=== PATIENT | male | born 1960 | race Caucasian/White ===

== ENCOUNTER 2016-11-06 01:11 | Inpatient (IN) | payer MEDICARE, OTHER ==
[~2016-11-06] VITALS: Ht 190.5 cm; Wt 100.2 kg
[~2016-11-06 01:11] MED LIST: AMLO-218 PO; ASPI-664 PO; ATOR20TA38 PO; BEN50 PO; CARV25TA79 PO; FURO-109 PO; HYDROMORPHONE MC; ISOS40TA15 PO; NITR0.4T6 SL; POTA20TA96 PO; RANO10002 PO; TICA90TA PO; [UNRECOGNIZED DRUG - CODE] TD
[2016-11-06] MEDS ORDERED: morphine 4 MG/ML VIAL IV STA (01:49)
[2016-11-06] MEDS ORDERED: ONDANSETRON 4 MG INJ IV STA (01:49)
[2016-11-06] MEDS ORDERED: ASPIRIN 325 MG TAB PO STA (01:49)
[2016-11-06] MEDS ORDERED: NITROGLYCERIN 2% 1 GM OINT PKT TD STA (01:49)
--- NOTE | 2016-11-06 01:55 | ERA ---
ER Documentation Chief Complaint Date/Time DATE: 11/06/16 TIME: 01:51 Chief Complaint chest pressure pain,SOB,just took nitro sublingual,hx MIX3 & CABG 2016 HPI This a 55-year-old male with a history of CAD and underwent triple bypass in April 2016. The patient states that he takes nitroglycerin as needed for chest pressure in his chest pressure pattern is very random. He says he usually takes 1 or 2 and it goes away but tonight the chest pressure did not go away. The patient said he was on a train coming to [place] when he developed substernal chest pressure about 1 hour ago. He said he took 3 nitroglycerin without relief. He said the pain went to his left arm he was a little sweaty and short of breath. He says the pain went from an 8 out of 10 to a 4 out of 10 in the pain is still there now. 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 ROS All systems reviewed and are negative except as per history of present illness. Medications Home Meds Active Scripts Nitroglycerin* (Nitroglycerin* SL) 0.4 Mg Tab.subl, 0.4 MG SL Q5MIN Y for CHEST PAIN for 30 Days, BOTTLE Prov:ANNA PIERRE 01/22/16 Nitroglycerin* (Nitro-Dur* Patch) 0.6 mg/hr Patch, 1 PATCH TD DAILY Y for CHEST PAIN, #30 PATCH Prov:ANNA PIERRE 01/22/16 Amlodipine Besylate* (Norvasc*) 10 Mg Tab, 10 MG PO DAILY, #30 TAB Prov:ANNA PIERRE 01/21/16 Aspirin* (Aspirin* EC) 81 Mg Tabec, 81 MG PO DAILY, #30 Prov:ANNA PIERRE 01/21/16 Reported Medications Ticagrelor* (Brilinta*) 90 Mg Tablet, 90 MG PO Q12, TAB 01/19/16 Diphenhydramine Hcl* (Benadryl*) 50 Mg Cap, 50 MG PO TID for ITCHING, CAP 09/11/14 Ranolazine* (Ranexa*) 1,000 Mg Tab.sr.12h, 1000 MG PO Q12, TAB 09/11/14 Potassium Chloride* (Potassium Chloride*) 20 Meq Tablet.er, 20 MEQ PO DAILY, TAB.SA 09/11/14 Nitroglycerin* (Nitroglycerin* SL) 0.4 Mg Tab.subl, 0.4 MG SL Q5MIN Y for CHEST PAIN, BOTTLE 09/11/14 Isosorbide Dinitrate* (Isordil*) 40 Mg Tablet, 40 MG PO TID, TAB 09/11/14 Hydromorphone* PUMP (Dilaudid* PUMP) 1 Each Pump.resvr, 1 EACH MC . DIRECTED Y for PAIN, EA 09/11/14 Furosemide* (Lasix*) 40 Mg Tablet, 40 MG PO BID, TAB 09/11/14 Carvedilol* (Carvedilol*) 25 Mg Tablet, 25 MG PO BID, TAB 09/11/14 Atorvastatin Calcium* (Atorvastatin Calcium*) 20 Mg Tablet, 20 MG PO HS, TAB 09/11/14 Allergies Allergies: Coded Allergies: atropine (Unverified Allergy, Unknown, 01/19/16) metoclopramide (Unverified Allergy, Unknown, 01/19/16) prochlorperazine (Unverified Allergy, Unknown, 01/19/16) PMhx/Soc History of Surgery: Yes (CABG, PMR,ABLATION,CHOLECYSTECTOMY) Anesthesia Reaction: No Hx Neurological Disorder: No Hx Respiratory Disorders: Yes (PNA) Hx Cardiac Disorders: Yes (LA, CAD,WPW,SVT,VT,EPICARDIAL PADS 2008) Hx Psychiatric Problems: No Hx Miscellaneous Medical Probl: No Hx Alcohol Use: No Hx Substance Use: No Hx Tobacco Use: No FmHx Family History: coronary disease Physical Exam Vitals Vital Signs Date Time Temp Pulse Resp B/P Pulse Ox O2 Delivery O2 Flow Rate FiO2 11/06/16 02:19 Nasal Cannula 11/06/16 02:19 80 16 107/70 100 Room Air 11/06/16 01:18 97.6 83 18 97/50 96 Physical Exam Const: Well-developed, well-nourished Head: Atraumatic, normocephalic Eyes: Normal Conjunctiva, PERRLA, EOMI, normal sclera, no nystagmus ENT: Normal External Ears, Nose and Mouth, moist mucus membranes. Neck: Full range of motion. No meningismus, no lymphadenopathy. Resp: Clear to auscultation bilaterally, no wheezing, rhonchi, rales Cardio: Regular rate and rhythm, no murmurs, S1 S2 present Abd: Soft, non tender x 4, non distended. Normal bowel sounds, no guarding or rebound, no pulsitile abdominal masses or bruits Skin: No petechiae or rashes, no ecchymosis , no maculopapular rash Back: No midline or flank tenderness Ext: No cyanosis, or edema, FROM x 4, normal inspection, neurovascularly intact x 4 Neur: Awake and alert, STR 5/5 x 4, sensation intact x 4, no focal findings, cerebellum intact Psych: Normal Mood and Affect Result Diagram: 11/06/16 0300 11/06/16 0300 Results 24 hrs Laboratory Tests Test 11/06/16 03:00 Activated Partial Thromboplast Time 32.6Sec Anion Gap 21 Blood Morphology Comment Blood Urea Nitrogen 24mg/dl Calcium Level 9.2mg/dl Carbon Dioxide Level 27mmol/L Chloride Level 95mmol/L Clumped Platelets OCCASIONAL Creatinine 2.28mg/dl Glucose Level 97mg/dl Hematocrit 32.1% Hemoglobin 10.4g/dl INR International Normalized Ratio 1.26 Lymphocytes # 0.510^3/ul Lymphocytes % 7.0% Mean Corpuscular Hemoglobin 26.4pg Mean Corpuscular Hemoglobin Concent 32.4g/dl Mean Corpuscular Volume 81.5fl Mean Platelet Volume 8.1fl Monocytes # 0.510^3/ul Monocytes % 7.0% Neutrophils # 6.010^3/ul Neutrophils % 86.0% Nucleated Red Blood Cells # 10^3/ul Platelet Count 88663^3/UL Platelet Estimate PLT APPEAR ADEQUATE Potassium Level 5.1mmol/L Prothrombin Time 15.9Sec Prothrombin Time Ratio 1.2 Red Blood Count 3.9310^6/ul Red Cell Distribution Width 21.9% Sodium Level 138mmol/L Troponin I 0.025ng/ml White Blood Count 7.010^3/ul Current Medications Medications (Trade) Dose Ordered Sig/Nora Route PRN Reason Start Time Stop Time Status Last Admin Dose Admin Aspirin (Aspirin) 325 mg ONCE STAT PO 11/06/16 01:49 11/06/16 01:50 DC 11/06/16 02:04 Nitroglycerin (Nitroglycerin 2% Oint) 1 inch ONCE STAT TD 11/06/16 01:49 11/06/16 01:50 DC Nitroglycerin (Nitroglycerin (Sl Tab) 0.4 Mg) 1 tab Q5M UP TO 3 DOSES PRN SL CHEST PAIN 11/06/16 02:00 Morphine Sulfate (morphine) 4 mg ONCE STAT IV 11/06/16 01:49 11/06/16 01:50 DC 11/06/16 04:01 Ondansetron HCl (Zofran Inj) 4 mg ONCE STAT IV 11/06/16 01:49 11/06/16 01:50 DC 11/06/16 04:01 Procedures/MDM EKG: Rate/Rhythm: Electronic ventricular pacemaker QRS, ST, QT: wide, QRS, QT] Impression: NORMAL EKG PROCEDURE: XR Chest. CLINICAL INDICATION: Chest pain. TECHNIQUE: Single frontal view of the chest was obtained COMPARISON: 01/19/2016. FINDINGS: Right lower chest wall medically electric cardiac device. This is new over interval since 01/19/2016, and the previously identified device has been exchanged. Cardiomegaly. Left lung base discoid atelectasis. Right lung is clear There is no pleural effusion or pneumothorax. IMPRESSION: Left lung base discoid atelectasis. RPTAT: [facility]U Physician Pasquale Date Time Electronically viewed and signed by Physician Pasquale on 11/06/2016 02:17 RS/ CC: BRI BURNETT DO Patient's symptoms are concerning for cardiac cause will require inpatient workup and continuous monitoring. Further w/u for ischemia, arrhythmia, PE or dissection will be deferred to the inpatient team. Accepting Care Team: Current data and ongoing care discussed. Time: Time of admission Primary Provider: sharon Consulting: [OUMAR] Outstanding Data: none Departure Diagnosis: Primary Impression: Chest pain Qualified Code: R07.9 - Chest pain, unspecified type Condition: Stable BRI BURNETT DO Nov 06, 2016 01:55
--- NOTE | 2016-11-06 02:17 | RADRPT ---
PROCEDURE: XR Chest. CLINICAL INDICATION: Chest pain. TECHNIQUE: Single frontal view of the chest was obtained COMPARISON: 01/19/2016. FINDINGS: Right lower chest wall medically electric cardiac device. This is new over interval since 01/19/2016 , and the previously identified device has been exchanged. Cardiomegaly. Left lung base discoid atelectasis. Right lung is clear There is no pleural effusion or pneumothorax. IMPRESSION: Left lung base discoid atelectasis. RPTAT: [facility]U Physician Pasquale Date Time Electronically viewed and signed by Kasi Rothman Physician on 11/06/2016 02:17 RS/
[2016-11-06 03:18] LABS: HEMATOCRIT 32.1 % (42.0-52.0); HEMOGLOBIN 10.4 g/dl (14.0-18.0); MEAN CORPUSCULAR HEMOGLOBIN 26.4 pg (29.0-33.0); MEAN CORPUSCULAR HGB CONC 32.4 g/dl (32.0-37.0); MEAN CORPUSCULAR VOLUME 81.5 fl (82.0-101.0); MEAN PLATELET VOLUME 8.1 fl (7.4-10.4); PLATELET COUNT 149 10^3/UL (140-440); RED BLOOD COUNT 3.93 10^6/ul (4.70-6.10); RED CELL DISTRIBUTION WIDTH 21.9 % (11.5-14.5)
[2016-11-06 03:19] LABS: CONDITION 1; LH ANALYZER COMMENTS 1; SUSPECT 1
[2016-11-06 03:26] LABS: INR 1.26; PARTIAL THROMBOPLASTIN TIME 32.6 Sec (25.0-35.0); PROTIME 15.9 Sec (12.2-14.2); PT RATIO 1.2
[2016-11-06 03:49] LABS: LYMPHOCYTES # 0.5 10^3/ul (0.8-2.9); MONOCYTE # 0.5 10^3/ul (0.3-0.9)
[2016-11-06 03:50] LABS: PLATELET ESTIMATE PLT APPEAR ADEQUATE; PLATELETS CLUMPS OCCASIONAL
[2016-11-06 03:52] LABS: POTASSIUM 5.1 mmol/L (3.5-5.1)
[2016-11-06 03:55] LABS: CREATININE 2.28 mg/dl (0.61-1.24)
[2016-11-06 03:56] LABS: CALCIUM 9.2 mg/dl (8.4-10.2)
[2016-11-06 04:08] LABS: TROPONIN-I 0.025 ng/ml (0.00-0.12)
[2016-11-06] MEDS ORDERED: SOD CHLORIDE 0.9% 1,000 ML IV SCH (04:38)
[2016-11-06] MEDS ORDERED: ACETAMINOPHEN 325 MG TAB PO PRN ×2 (05:00→07:00)
[2016-11-06] MEDS ORDERED: ONDANSETRON 4 MG INJ IV PRN ×2 (05:00→07:00)
[2016-11-06] MEDS: NITROGLYCERIN (SL) 0.4 MG TAB SL PRN ×2 (05:06→05:15)
[2016-11-06] MEDS ORDERED: NITROGLYCERIN (SL) 0.4 MG TAB SL PRN (07:00)
[2016-11-06] MEDS ORDERED: ALBUTEROL/IPRATROPIUM (NEB) 3 ML AMP HHN PRN (07:00)
[2016-11-06] MEDS ORDERED: FUROSEMIDE 40 MG TAB PO SCH (07:00)
[2016-11-06] MEDS ORDERED: NACL 0.9% 3 ML SYG IV SCH (07:00)
[2016-11-06] MEDS: TICAGRELOR 90 MG TABLET PO SCH ×2 (08:05→20:34)
[2016-11-06] MEDS: ASPIRIN (EC) 81 MG TAB PO SCH (08:05)
--- NOTE | 2016-11-06 08:14 | HP ---
DATE OF ADMISSION: 11/06/2016 TIME SEEN: 6 a.m. CHIEF COMPLAINT: Chest pain. 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 He said the pain started while he was sitting on a train, and it is located in the mid chest with ra diation to his left shoulder and arm. The pain started an hour or 2 prior to arrival to the ER. He denied any shortness of breath, nausea, vomiting, or diaphoresis. He took 3 sublingual nitroglycer in without relief of his pain. When he presented to the ER, blood pressure was 97/50, heart rate 83, respiratory rate 18, temperatu re 97.6, oxygen saturation 96% on room air. Laboratory value shows a hemoglobin of 10.4 with an MCV of 81, 22, chloride 95, BUN 24, creatinine 2.28. His first troponin is negative. EKG shows ventricular paced, no ST elevation or depression. He received aspirin nitro, morphine, and Zofran w hile he was in the ER. Chest x-ray shows left lung base, discoid atelectasis. The right lung is cl ear and there is no pleural effusion. REVIEW OF SYSTEMS: A 12-point review of systems was performed and is negative except as mentioned i n the HPI. PAST MEDICAL HISTORY: As per HPI. PAST SURGICAL HISTORY: As per HPI. ALLERGIES: 1. ATROPINE 2. REGLAN. 2. PROCHLORPERAZINE. HOME MEDICATIONS: 1. Benadryl. 2. Brilinta. 3. Norvasc. 4. Lipitor. 5. Coreg. 6. Isordil. 7. Ranexa 8. Aspirin. 9. Lasix. 10. Potassium PHYSICAL EXAMINATION: VITAL SIGNS: Blood pressure 99/66, heart rate 80, respiratory rate 16, temperature 97.6, oxygen sat uration 100% on room air. GENERAL: No acute distress, answering questions appropriately, able to speak in full sentences. HEENT: Normocephalic, atraumatic. Extraocular muscles intact. Pupils are reactive to light. CARDIOVASCULAR: Regular rate and rhythm with no extra sounds. LUNGS: Clear. No wheezes or rhonchi. ABDOMEN: Soft, nontender, nondistended. Positive bowel sounds. EXTREMITIES: No edema. NEUROLOGIC: No focal deficits. LABORATORY: Pertinent positive results are as mentioned in the HPI. IMAGING: Chest x-ray with results as mentioned in the HPI. IMPRESSION: 1. Chest pain, need to rule out acute coronary syndrome. 2. History of coronary artery disease with history of coronary artery bypass graft with coronary ar nadir bypass graft. 3. History of tachybrady syndrome, status post ablation and pacemaker placement 4. History of Dslrj-Mrlinaxhw-Vjjly syndrome 5. History of OR in December of last year. 6. History of supraventricular tachycardia and ventricular tachycardia. PLAN: Admit to telemetry unit. We will send additional troponins. Will obtain a 2-D echo and card iology consult. He will be continued with his home medications which include a beta genet and Mariaa linta, aspirin, statin, nitro, and diuretic. He will also be placed on oxygen and will provide as n eeded morphine and sublingual nitro. Further workup and management will be per clinical course. For DVT prophylaxis, subcutaneous heparin. Dictated By: LINNEA BENTLEY/KETURAH Conf#: [id number] DID#: [id number]
[2016-11-06] MEDS: ISOSORBIDE DINITRATE 20 MG TAB PO SCH ×3 (09:00→20:41)
[2016-11-06] MEDS: POTASSIUM CHLORIDE (SR) 20 MEQ TAB PO SCH (09:00)
[2016-11-06] MEDS: HEPARIN 5,000 UNIT/0.5 ML VIAL SC SCH ×2 (09:00→20:36)
[2016-11-06] MEDS: AMLODIPINE 10 MG TAB PO SCH (09:00)
[2016-11-06] MEDS: DIPHENHYDRAMINE 50 MG CAP PO SCH ×3 (09:00→20:34)
[2016-11-06] MEDS: RANOLAZINE (SR) 500 MG TAB PO SCH ×2 (09:00→20:34)
--- NOTE | 2016-11-06 09:24 | CONS ---
Date/Time of Note Date/Time of Note DATE: 11/06/16 TIME: 08:57 Assessment/Plan Assessment/Plan Chief Complaint/Hosp Course Chest pain/SOB: His symptoms are certainly concerning for bypass graft failure considering he was doing well until 1 month ago. He does not have e/o heart failure on my exam (maybe even dry) and so I doubt that is what is causing his symptoms. It is not uncommon for graft failure even this early after surgery. I think a cardiac cath would be reasonable but due to his renal function (?acute vs chronic), the patient prefers to hold off until we have more evidence. His first trop was negative. If the second is positive, will rediscuss and likely proceed with cath today. If negative, he prefers a stress test to evaluate. However he does not want the stress test today and wants to see how he feels tomorrow. He understands that stress testing is not done over the weekend and he would have to wait until Wednesday otherwise. He is agreeable. CAD s/p CABG: as above ICM: EF 40% per pt. No signs of CHF by exam. Acute renal failure vs CKD: Unknown baseline renal function WPW s/p ablation -continue ASA, ticagrelor, lipitor -coreg 25mg BID (with holding parameters) -imdur -decrease to lasix 20mg BID as may be dry on exam which may explain renal function -trend trops -refer to above discussion for next steps of management Problems: Consultation Date/Type/Reason Admit Date/Time Date of Consultation: Nov 06, 2016 Type of Consultation: Cardiology Reason for Consultation Chest pain Referring Provider: LYDIA BENNETT Hx of Present Illness 55 yo M with a h/o CAD s/p CABG (3V, 04/2016 in [place]), ICM (per pt ~40%), h/o WPW s /p ablation, ICD (epicardial), CKD (unknown baseline), who presents with chest pain. The patient notes that he was doing well since his surgery until the past 3-4 weeks where he has noticed mostly increasing GUTIERREZ. He denies edema, orthopnea , PND. He does note that he gets random episodes of chest pain with and without exertion relieved with 1 NTG. He lives in [place] but was visiting his uncle here in [place] and had chest pain in the train but the [facility] did not help so he decided to come in. The symptoms are similar to what he had prior to CABG. He also notes that he had multiple stents that were "closed off" which is the reason he had the CABG. Currently asymptomatic. per HPI Past Medical History see HPI Past Surgical History Past Surgical Hx: angioplasty, other Exam/Review of Systems Vital Signs Vitals Vital Signs Date Time Temp Pulse Resp B/P Pulse Ox O2 Delivery O2 Flow Rate FiO2 11/06/16 07:15 80 18 108/72 99 Nasal Cannula 2.0 11/06/16 01:18 97.6 Exam Constitutional: alert, oriented Psych: no complaints Head: atraumatic, normocephalic Eyes: nl conjunctiva Neck: No jvd Respiratory: clear to auscultation, No crackles/rales Cardiovascular: edema (1+), regular rate and rhythm, No systolic murmur Gastrointestinal: non-tender, soft Musculoskeletal: nl extremities to inspection Extremities: normal pulses Neurological: nl mental status, nl speech Skin: No rash or lesions Results EKG: sinus, paced Result Diagram: 11/06/16 0300 11/06/16 0300 Results 24 hrs Laboratory Tests Test 11/06/16 03:00 Activated Partial Thromboplast Time 32.6 Anion Gap 21 H Blood Morphology Comment Blood Urea Nitrogen 24 H Calcium Level 9.2 Carbon Dioxide Level 27 Chloride Level 95 L Clumped Platelets OCCASIONAL Creatinine 2.28 H Glucose Level 97 Hematocrit 32.1 #L Hemoglobin 10.4 #L INR International Normalized Ratio 1.26 Lymphocytes # 0.5 L Lymphocytes % 7.0 L Mean Corpuscular Hemoglobin 26.4 L Mean Corpuscular Hemoglobin Concent 32.4 Mean Corpuscular Volume 81.5 L Mean Platelet Volume 8.1 Monocytes # 0.5 Monocytes % 7.0 Neutrophils # 6.0 Neutrophils % 86.0 H Nucleated Red Blood Cells # Platelet Count 149 # Platelet Estimate PLT APPEAR ADEQUATE Potassium Level 5.1 Prothrombin Time 15.9 H Prothrombin Time Ratio 1.2 Red Blood Count 3.93 L Red Cell Distribution Width 21.9 #H Sodium Level 138 Troponin I 0.025 White Blood Count 7.0 Medications Medications Current Medications Sodium Chloride (NS) 1,000 ml @ 80 mls/hr [id number] IV Last administered on 11/06t 06:05; Admin Dose 80 MLS/HR; Start 11/06/16 at 04:38; Stop 11/06/16 at 17: 07 Ondansetron HCl (Zofran Inj) 4 mg Q6H PRN IV NAUSEA AND/OR VOMITING; Start at 07:00 Nitroglycerin (Nitroglycerin (Sl Tab) 0.4 Mg) 1 tab Q5M PRN SL CHEST PAIN; Start 11/06/16 at 07:00 Acetaminophen (Tylenol Tab) 650 mg Q6H PRN PO PAIN LEVEL 1-3 OR FEVER; Start at 07:00 Morphine Sulfate (morphine) 2 mg Q4H PRN IV PAIN LEVEL 7-10; Start 11/06/16 at 07:00 Heparin Sodium (Porcine) (Heparin (5000 Units/0.5 ml)) 5,000 unit Q12 SC ; Start 11/06/16 at 09:00 Amlodipine Besylate (Norvasc) 10 mg DAILY PO ; Start 11/06/16 at 09:00 Aspirin (Halfprin) 81 mg DAILY PO Last administered on 11/06/16 08:05; Admin Dose 81 MG; Start 11/06/16 at 09:00 Atorvastatin Calcium (Lipitor) 20 mg HS PO ; Start 11/06/16 at 21:00 Carvedilol (Coreg) 25 mg BID PO ; Start 11/06/16 at 09:00 Diphenhydramine HCl (Benadryl) 50 mg TID PO ; Start 11/06/16 at 09:00 Potassium Chloride (Klor-Con 20) 20 meq DAILY PO ; Start 11/06/16 at 09:00 Ranolazine (Ranexa) 1,000 mg Q12 PO ; Start 11/06/16 at 09:00 Ticagrelor (Brilinta) 90 mg Q12 PO Last administered on 11/06/16 08:05; Admin Dose 90 MG; Start 11/06/16 at 09:00 Isosorbide Dinitrate (Isordil) 40 mg TID PO ; Start 11/06/16 at 09:00 GAUTAM MUNIZ Nov 06, 2016 09:24
--- NOTE | 2016-11-06 13:12 | RADRPT ---
Echocardiogram Report Patient Name: FELIPE ROMANO Gender: Male Date: 1960 Study Date: 06-Nov-2016 Funding Specialist: Yulissa Hendrickson RDCS Location: Ref. Physician: LINNEA HARRIS Quality: Technically Difficult Study Procedures: Transthoracic echocardiogram with complete 2D, M-Mode, and doppler examination. Indications: Chest Pain. 2D/M Mode Doppler Measurement Value Normal Ranges Measurement Value Normal Ranges LVIDd 2D 5.5 3.5 - 5.6 cm AV Peak Bebo 1.7 m/sec LVIDs 2D 4.6 2.1 - 4.1 cm AV Peak PG 12.1 mmHg LVPWd 2D 1.1 0.6 - 1.1 cm AI Peak PG 56.1 mmHg IVSd 2D 1.2 0.6 - 1.1 cm AI Peak Bebo 3.7 m/sec AoR Diam 2D 2.9 2.0 - 3.7 cm AI PHT 510.4 msec EDV 2D 147.5 cm3 LVOT Peak Bebo 1.0 m/sec ESV 2D 94.6 cm3 LVOT Peak PG 3.7 mmHg LA Dimen 2D 4.3 2.3 - 4.0 cm MV E Peak Bebo 0.6 m/sec MV A Peak Bebo 0.6 m/sec MV E/A 0.9 MV Decel Time 139 msec MV Decel [place] 4 MV E/A 0.9 TR Peak Bebo 1.2 m/sec TR Peak PG 5.5 mmHg RVSP 21.0 mmHg Findings Left Ventricle: Normal left ventricular systolic function. Normal left ventricular cavity size. Mild concentric left ventricular hypertrophy. Ejection fraction is visually estimated at 55 %. Tissue Doppler/Mitral Doppler indices are consistent with impaired relaxation (Stage I diastolic dysfunction). Right Ventricle: Mild enlargement of right ventricle. Moderate right ventricular hypokinesis. Left Atrium: There is moderate enlargement of left atrium. Right Atrium: There is moderate enlargement of right atrium. Mitral Valve: Mild mitral annular calcification. There is trace to mild mitral valve regurgitation. Aortic Valve: Aortic cusps appear mildly calcified. Moderate to severe aortic valve regurgitation. Tricuspid Valve: Estimated peak PA systolic pressure mmHg. There is severe tricuspid regurgitation. Pericardium: Normal pericardium with no significant pericardial effusion. Aorta: Normal aortic root. IVC: Dilated IVC with respiratory collapse consistent with elevated right atrial pressure. Conclusions Normal left ventricular systolic function. Normal left ventricular cavity size. Mild concentric left ventricular hypertrophy. Ejection fraction is visually estimated at 55 %. Tissue Doppler/Mitral Doppler indices are consistent with impaired relaxation (Stage I diastolic dysfunction). Abnormal septal motion due to cardiac surgery. Mild enlargement of right ventricle. Moderate right ventricular hypokinesis. Moderate to severe aortic valve regurgitation. Severe tricuspid regurgitation. PAP could not be estimated due to severe TR. RA pressure is 8 mmHg. Electronically Signed By: Lul Gutierres 06-Nov-2016 13:11:18 -0800 Patient Name: FELIPE ROMANO Study Date: 06-Nov-2016 [id number]
[2016-11-06 13:56] LABS: TROPONIN-I 0.02 ng/ml (0.00-0.12)
[2016-11-06 14:12] LABS: CK-MB 3.32 ng/ml (0.0-2.4)
[2016-11-06] MEDS: morphine 2 MG INJ IV PRN ×2 (15:26→19:43)
[2016-11-06] MEDS: FUROSEMIDE 20 MG TAB PO SCH (19:16)
[2016-11-06] MEDS: ATORVASTATIN 20 MG TAB PO SCH (20:35)
[2016-11-06 20:45] VITALS: TEMP 98
[2016-11-06 21:00] VITALS: BP 119/69; PULSE 78; RESP 16
[2016-11-06 21:34] VITALS: Ht 190.5 cm; Wt 100.2 kg
[2016-11-06 21:53] VITALS: PULSE 82
[2016-11-06] MEDS ORDERED: HYDROCODONE/APAP (10/325) TAB PO PRN (22:00)
[2016-11-06] MEDS: morphine 4 MG/ML VIAL IV PRN (22:29)
[2016-11-06 23:10] LABS: TROPONIN-I 0.023 ng/ml (0.00-0.12)
[2016-11-06 23:23] LABS: CK-MB 3.25 ng/ml (0.0-2.4)
[2016-11-07] VITALS (12 sets, daily range): BP systolic 91–148; BP diastolic 53–69; PULSE 79–96; RESP 15–20
[2016-11-07] MEDS: FUROSEMIDE 20 MG TAB PO SCH ×2 (05:12→18:55)
[2016-11-07] MEDS: morphine 4 MG/ML VIAL IV PRN ×2 (05:12→10:06)
[2016-11-07] MEDS: AMLODIPINE 10 MG TAB PO SCH (09:00)
[2016-11-07] MEDS: ISOSORBIDE DINITRATE 20 MG TAB PO SCH ×3 (09:00→22:22)
[2016-11-07] MEDS: DIPHENHYDRAMINE 50 MG CAP PO SCH ×3 (09:00→22:21)
[2016-11-07] MEDS: RANOLAZINE (SR) 500 MG TAB PO SCH ×2 (09:56→22:21)
[2016-11-07] MEDS: ASPIRIN (EC) 81 MG TAB PO SCH (09:56)
[2016-11-07] MEDS: TICAGRELOR 90 MG TABLET PO SCH ×2 (09:59→22:46)
[2016-11-07] MEDS: POTASSIUM CHLORIDE (SR) 20 MEQ TAB PO SCH (10:02)
[2016-11-07] MEDS: HEPARIN 5,000 UNIT/0.5 ML VIAL SC SCH ×2 (10:03→22:45)
--- NOTE | 2016-11-07 14:50 | PN ---
Date/Time of Note Date/Time of Note DATE: 11/07/16 TIME: 14:43 Assessment/Plan VTE Prophylaxis VTE Prophylaxis Intervention: SCD's Lines/Catheters IV [facility] [place] Assessment/Plan Chief Complaint/Hosp Course Assessment and plan 1. Chest pain. Troponin negative so far. Echocardiogram with ejection fraction of 55% with stage I diastolic dysfunction. Continue optimization with cardiovascular medications. [employer] following. Tentative for stress test versus cardiac cath. We'll follow-up 2. History of CAD with CABG. Continue on statin and antiplatelet 3. History of tachybradycardia syndrome. Patient is status post ablation and pacemaker placement. Continue inpatient monitoring 4. History of Xccoa-Altkjhyrh-Rntzh syndrome. Continue with cardiology recommendations 5. History of myocardial infarction when year ago. Continue on beta genet and Disposition and plan: Follow-up with cardiology. Tentative plan for possible stress test. We'll follow-up with recommendations. Discharge him medically stable and cleared by consultants Discussed plan of care with Dr. Malloy Problems: Subjective 24 Hr Interval Summary Free Text/Dictation No signs or symptoms of distress. Denies chest pain Exam/Review of Systems Vital Signs Vitals Vital Signs Date Time Temp Pulse Resp B/P Pulse Ox O2 Delivery O2 Flow Rate FiO2 11/07/16 12:26 80 11/07/16 11:55 98.2 18 102/58 92 11/07/16 04:00 Room Air 11/06/16 16:58 2.0 Intake and Output 11/06/16 11/06/16 11/07/16 14:59 22:59 06:59 Intake Total 1000 ml 800 ml Output Total 550 ml 400 ml Balance 450 ml 400 ml Exam General: No acute signs or symptoms of distress Eyes: pupils equal round, Anicteric scler Neck: Supple nontender, no JVD Cardiac: S1, S2 auscultated, regular rhythm and rate Pulmonary: No coarse rhonchi or breathing auscultated GI: Abdomen soft nontender nondistended, bowel sounds active Extremities: No edema bilateral lower extremities Skin: Clean dry and intact Neurologic: Alert to person place and time and situation Results Result Diagram: 11/06/16 0300 11/06/16 0300 Results 24 hrs Laboratory Tests Test 11/06/16 22:25 Creatine Kinase 137 Creatine Kinase Index 2.4 Creatinine Kinase MB (Mass) 3.25 H Troponin I 0.023 Medications Medications Current Medications Ondansetron HCl (Zofran Inj) 4 mg Q6H PRN IV NAUSEA AND/OR VOMITING; Start at 07:00 Nitroglycerin (Nitroglycerin (Sl Tab) 0.4 Mg) 1 tab Q5M PRN SL CHEST PAIN; Start 11/06/16 at 07:00 Acetaminophen (Tylenol Tab) 650 mg Q6H PRN PO PAIN LEVEL 1-3 OR FEVER; Start at 07:00 Heparin Sodium (Porcine) (Heparin (5000 Units/0.5 ml)) 5,000 unit Q12 SC Last administered on 11/07/16 10:03; Admin Dose 5,000 UNIT; Start 11/06/16 at 09:00 Amlodipine Besylate (Norvasc) 10 mg DAILY PO ; Start 11/06/16 at 09:00 Aspirin (Halfprin) 81 mg DAILY PO Last administered on 11/07/16 09:56; Admin Dose 81 MG; Start 11/06/16 at 09:00 Atorvastatin Calcium (Lipitor) 20 mg HS PO Last administered on 11/06/16 20:35 ; Admin Dose 20 MG; Start 11/06/16 at 21:00 Carvedilol (Coreg) 25 mg BID PO ; Start 11/06/16 at 09:00 Diphenhydramine HCl (Benadryl) 50 mg TID PO Last administered on 11/06/16 20: 34; Admin Dose 50 MG; Start 11/06/16 at 09:00 Potassium Chloride (Klor-Con 20) 20 meq DAILY PO Last administered on 10:02; Admin Dose 20 MEQ; Start 11/06/16 at 09:00 Ranolazine (Ranexa) 1,000 mg Q12 PO Last administered on 11/07/16 09:56; Admin Dose 1,000 MG; Start 11/06/16 at 09:00 Ticagrelor (Brilinta) 90 mg Q12 PO Last administered on 11/07/16 09:59; Admin Dose 90 MG; Start 11/06/16 at 09:00 Isosorbide Dinitrate (Isordil) 40 mg TID PO ; Start 11/06/16 at 09:00 Morphine Sulfate (morphine) 4 mg Q4H PRN IV severe pain Last administered on t 10:06; Admin Dose 4 MG; Start 11/06/16 at 22:00 Acetaminophen/ Hydrocodone Bitart ([place] ()) 1 tab Q6H PRN PO moderate pain; Start 11/06/16 at 22:00 LYDIA BENNETT Nov 07, 2016 14:49
[2016-11-07] MEDS ORDERED: morphine 4 MG/ML VIAL IM PRN ×2 (18:41→22:00)
[2016-11-07] MEDS: morphine 4 MG/ML VIAL IM PRN ×2 (18:56→23:18)
--- NOTE | 2016-11-07 20:08 | CONS ---
Date/Time of Note Date/Time of Note DATE: 11/07/16 TIME: 20:01 Assessment/Plan Assessment/Plan Chief Complaint/Hosp Course Chest pain and dyspnea on exertion: ruled out for myocardial infarction Moderate to severe aortic regurgitation Severe tricuspid regurgitation CAD s/p CABG History of ischemic cardiomyopathy: prior LVEF 40% per patient, now with LVEF 55 % on echocardiogram Acute renal failure vs chronic kidney disease: unknown baseline renal function WPW s/p ablation -echocardiogram showed LVEF 55%, mild LVH, mild diastolic dysfunction, moderate to severe AR, severe TR -continue aspirin, ticagrelor, Lipitor -continue Coreg, Isordil, Ranexa -increase Lasix back to 40mg BID, monitor renal function -will defer coronary angiography given negative troponins and risk for contrast nephropathy with pre-existing renal failure -plan for Lexiscan SPECT next week Problems: Consultation Date/Type/Reason Admit Date/Time Nov 06, 2016 at 04:39 Initial Consult Date 11/06/16 Type of Consultation: Cardiology 24 HR Interval Summary Free Text/Dictation No further chest pain. No shortness of breath at rest, but still with dyspnea on exertion. Detailed Summary Additional Comments 14 point review of systems without changes. Exam/Review of Systems Vital Signs Vitals Vital Signs Date Time Temp Pulse Resp B/P Pulse Ox O2 Delivery O2 Flow Rate FiO2 11/07/16 17:05 79 11/07/16 16:00 98.4 18 98/55 91 11/07/16 04:00 Room Air 11/06/16 16:58 2.0 Intake and Output 11/06/16 11/06/16 11/07/16 15:00 23:00 07:00 Intake Total 1000 ml 800 ml Output Total 550 ml 400 ml Balance 450 ml 400 ml Exam Constitutional: alert, oriented Psych: no complaints Head: atraumatic, normocephalic Eyes: nl conjunctiva Neck: No jvd Respiratory: clear to auscultation, No crackles/rales Cardiovascular: edema (1+), regular rate and rhythm, No systolic murmur Gastrointestinal: non-tender, soft Musculoskeletal: nl extremities to inspection Extremities: normal pulses Neurological: nl mental status, nl speech Skin: No rash or lesions Results Result Diagram: 11/06/16 0300 11/06/16 0300 Results 24 hrs Laboratory Tests Test 11/06/16 22:25 Creatine Kinase 137 Creatine Kinase Index 2.4 Creatinine Kinase MB (Mass) 3.25 H Troponin I 0.023 Medications Medications Current Medications Ondansetron HCl (Zofran Inj) 4 mg Q6H PRN IV NAUSEA AND/OR VOMITING; Start at 07:00 Nitroglycerin (Nitroglycerin (Sl Tab) 0.4 Mg) 1 tab Q5M PRN SL CHEST PAIN; Start 11/06/16 at 07:00 Acetaminophen (Tylenol Tab) 650 mg Q6H PRN PO PAIN LEVEL 1-3 OR FEVER; Start at 07:00 Heparin Sodium (Porcine) (Heparin (5000 Units/0.5 ml)) 5,000 unit Q12 SC Last administered on 11/07/16 10:03; Admin Dose 5,000 UNIT; Start 11/06/16 at 09:00 Amlodipine Besylate (Norvasc) 10 mg DAILY PO ; Start 11/06/16 at 09:00 Aspirin (Halfprin) 81 mg DAILY PO Last administered on 11/07/16 09:56; Admin Dose 81 MG; Start 11/06/16 at 09:00 Atorvastatin Calcium (Lipitor) 20 mg HS PO Last administered on 11/06/16 20:35 ; Admin Dose 20 MG; Start 11/06/16 at 21:00 Carvedilol (Coreg) 25 mg BID PO ; Start 11/06/16 at 09:00 Diphenhydramine HCl (Benadryl) 50 mg TID PO Last administered on 11/06/16 20: 34; Admin Dose 50 MG; Start 11/06/16 at 09:00 Potassium Chloride (Klor-Con 20) 20 meq DAILY PO Last administered on 10:02; Admin Dose 20 MEQ; Start 11/06/16 at 09:00 Ranolazine (Ranexa) 1,000 mg Q12 PO Last administered on 11/07/16 09:56; Admin Dose 1,000 MG; Start 11/06/16 at 09:00 Ticagrelor (Brilinta) 90 mg Q12 PO Last administered on 11/07/16 09:59; Admin Dose 90 MG; Start 11/06/16 at 09:00 Isosorbide Dinitrate (Isordil) 40 mg TID PO ; Start 11/06/16 at 09:00 Acetaminophen/ Hydrocodone Bitart ([place] (10)) 1 tab Q6H PRN PO moderate pain; Start 11/06/16 at 22:00 Morphine Sulfate (morphine) 4 mg Q4H PRN IM severe pain Last administered on t 18:56; Admin Dose 4 MG; Start 11/07/16 at 18:40 KENDRA MCKAY MD Nov 07, 2016 20:08
[2016-11-07] MEDS: ATORVASTATIN 20 MG TAB PO SCH (22:23)
[2016-11-08] VITALS (14 sets, daily range): BP systolic 100–125; BP diastolic 57–76; PULSE 79–86; RESP 18–20
[2016-11-08] MEDS: morphine 4 MG/ML VIAL IM PRN ×4 (04:32→20:49)
[2016-11-08] MEDS: FUROSEMIDE 20 MG TAB PO SCH ×2 (06:13→17:36)
--- NOTE | 2016-11-08 09:05 | QN ---
Documentation Comment renal consult chart reviewed full consult to follow CORINA GRIFFITH MD Nov 08, 2016 09:05
[2016-11-08] MEDS: DIPHENHYDRAMINE 50 MG CAP PO SCH ×3 (09:35→20:45)
[2016-11-08] MEDS: ASPIRIN (EC) 81 MG TAB PO SCH (09:36)
[2016-11-08] MEDS: ISOSORBIDE DINITRATE 20 MG TAB PO SCH ×3 (09:37→20:47)
[2016-11-08] MEDS: POTASSIUM CHLORIDE (SR) 20 MEQ TAB PO SCH (09:37)
[2016-11-08] MEDS: AMLODIPINE 10 MG TAB PO SCH (09:38)
[2016-11-08] MEDS: RANOLAZINE (SR) 500 MG TAB PO SCH ×2 (09:38→20:45)
[2016-11-08] MEDS: HEPARIN 5,000 UNIT/0.5 ML VIAL SC SCH ×2 (09:40→21:06)
[2016-11-08] MEDS: TICAGRELOR 90 MG TABLET PO SCH ×2 (09:40→20:47)
[2016-11-08 10:03] LABS: HEMATOCRIT 31.3 % (42.0-52.0); HEMOGLOBIN 10.3 g/dl (14.0-18.0); MEAN CORPUSCULAR HEMOGLOBIN 26.6 pg (29.0-33.0); MEAN CORPUSCULAR HGB CONC 32.9 g/dl (32.0-37.0); MEAN CORPUSCULAR VOLUME 80.7 fl (82.0-101.0); MEAN PLATELET VOLUME 7.2 fl (7.4-10.4); PLATELET COUNT 159 10^3/UL (140-440); RED BLOOD COUNT 3.87 10^6/ul (4.70-6.10); RED CELL DISTRIBUTION WIDTH 22.5 % (11.5-14.5); UNCORRECTED WBC 3.2 10^3/ul (4.8-10.8); WHITE BLOOD COUNT 3.2 10^3/ul (4.8-10.8)
[2016-11-08 10:07] LABS: CONDITION 1; LH ANALYZER COMMENTS 1; SUSPECT 1
[2016-11-08 10:09] LABS: POTASSIUM 3.9 mmol/L (3.5-5.1)
[2016-11-08 10:10] LABS: ADD UMIC NO; URINE BILIRUBIN (Dip) NEGATIVE (NEGATIVE); URINE BLOOD (Dip) NEGATIVE (NEGATIVE); URINE COLOR YELLOW (YELLOW); URINE GLUCOSE (Dip) NEGATIVE (NEGATIVE); URINE KETONES (Dip) NEGATIVE (NEGATIVE); URINE LEUKOCYTE ESTERASE (Dip) NEGATIVE (NEGATIVE); URINE NITRITE (Dip) NEGATIVE (NEGATIVE); URINE TOTAL PROTEIN (Dip) NEGATIVE (NEGATIVE); URINE UROBILINOGEN (Dip) 2.0 E.U./dL (0.1-1.0)
[2016-11-08 10:11] LABS: CREATININE 0.96 mg/dl (0.61-1.24)
[2016-11-08 10:12] LABS: CALCIUM 8.5 mg/dl (8.4-10.2)
--- NOTE | 2016-11-08 11:16 | RADRPT ---
PROCEDURE: US Renal CLINICAL INDICATION: A K I TECHNIQUE: Multiple sonographic images of the kidneys and bladder were obtained. Evaluation of th e kidneys and bladder was performed as well with sumner scale and color and Doppler evaluation using a curved array transducer. The images were reviewed on a high-resolution PACS workstation. COMPARISON: No prior studies are available for comparison. FINDINGS: The right kidney measures 12.2 cm in length. The left kidney measures 12.4 cm in length. There are n o focal areas of abnormal echogenicity. There is mild dilatation of the inferior pole gisela of the l eft kidney. No intra renal mass or discrete calcification is identified. The bladder is unremarkable appearance. IMPRESSION: 1. Mild dilatation of the inferior pole gisela within the left kidney. 2. Otherwise, unremarkable renal sonogram. Physician Park Date Time Electronically viewed and signed by Physician Park on 11/08/2016 11:16 /
[2016-11-08 12:18] LABS: LYMPHOCYTES # 0.7 10^3/ul (0.8-2.9); MONOCYTE # 0.3 10^3/ul (0.3-0.9); NEUTROPHIL # 2.2 10^3/ul (1.6-7.5)
--- NOTE | 2016-11-08 13:54 | PN ---
Date/Time of Note Date/Time of Note DATE: 11/08/16 TIME: 13:51 Assessment/Plan VTE Prophylaxis VTE Prophylaxis Intervention: SCD's Lines/Catheters [facility] NOT WORKING Assessment/Plan Chief Complaint/Hosp Course Assessment and plan 1. Chest pain. Troponin negative so far. Echocardiogram with ejection fraction of 55% with stage I diastolic dysfunction. Continue optimization with cardiovascular medications. Electrical And Instrument Engineer following. Tentative for stress test versus cardiac cath. We'll follow-up 2. History of CAD with CABG. Continue on statin and antiplatelet 3. History of tachybradycardia syndrome. Patient is status post ablation and pacemaker placement. Continue inpatient monitoring 4. History of Riuah-Himolbpit-Flfmd syndrome. Continue with cardiology recommendations 5. History of myocardial infarction when year ago. Continue on beta genet and 6. WEN. improved at present. cont with nephrology recs Disposition and plan: Follow-up with cardiology. Tentative plan for possible stress test. continue inpatient monitoring ADDENDUM: Patient lives in [place] and currently has no housing in [place]. He also reports that his friend is the one who will drive from [place] to pick him up and bring him back home. Discussed with radio despatcher. Plan for stress test this admission Discussed plan of care with Dr. Malloy Problems: Subjective 24 Hr Interval Summary Free Text/Dictation denies any chest pain. Comfortable at present Exam/Review of Systems Vital Signs Vitals Vital Signs Date Time Temp Pulse Resp B/P Pulse Ox O2 Delivery O2 Flow Rate FiO2 11/08/16 12:22 80 11/08/16 12:19 98.4 18 107/57 100 11/07/16 04:00 Room Air 11/06/16 16:58 2.0 Intake and Output 11/07/16 11/07/16 11/08/16 15:00 23:00 07:00 Intake Total 420 ml 600 ml Output Total 800 ml 800 ml Balance -380 ml -200 ml Exam General: No acute signs or symptoms of distress Eyes: pupils equal round, Anicteric scler Neck: Supple nontender, no JVD Cardiac: S1, S2 auscultated, regular rhythm and rate Pulmonary: No coarse rhonchi or breathing auscultated GI: Abdomen soft nontender nondistended, bowel sounds active Extremities: No edema bilateral lower extremities Skin: Clean dry and intact Neurologic: Alert to person place and time and situation Results Result Diagram: 11/08/1695011/08/16 09 Results 24 hrs Laboratory Tests Test 11/08/16 04:30 11/08/16 09:51 Urine Bilirubin NEGATIVE Urine Clarity CLEAR Urine Color YELLOW Urine Glucose NEGATIVE Urine Hemoglobin NEGATIVE Urine Ketones NEGATIVE Urine Leukocyte Esterase NEGATIVE Urine Nitrite NEGATIVE Urine Protein/Creatinine Ratio Urine Random Creatinine Urine Random Sodium 45 Urine Specific [place] 1.010 Urine Total Protein Urine Urobilinogen 2.0 E.U./dL H Urine pH 6.0 Anion Gap 14 Band Neutrophils % 1.0 Basophils # Basophils % Blood Morphology Comment Blood Urea Nitrogen 19 Calcium Level 8.5 Carbon Dioxide Level 32 H Chloride Level 97 Creatinine 0.96 Differential Comment MANUAL DIFF Eosinophils # 0.0 Eosinophils % 1.0 Glucose Level 95 Hematocrit 31.3 L Hemoglobin 10.3 L Lymphocytes # 0.7 L Lymphocytes % 21.0 Mean Corpuscular Hemoglobin 26.6 L Mean Corpuscular Hemoglobin Concent 32.9 Mean Corpuscular Volume 80.7 L Mean Platelet Volume 7.2 L Monocytes # 0.3 Monocytes % 8.0 Neutrophils # 2.2 Neutrophils % 69.0 Nucleated Red Blood Cells # Nucleated Red Blood Cells % Phosphorus Level 2.2 L Platelet Count 159 Potassium Level 3.9 Red Blood Count 3.87 L Red Cell Distribution Width 22.5 H Sodium Level 139 White Blood Count 3.2 #L Medications Medications Current Medications Ondansetron HCl (Zofran Inj) 4 mg Q6H PRN IV NAUSEA AND/OR VOMITING; Start at 07:00 Nitroglycerin (Nitroglycerin (Sl Tab) 0.4 Mg) 1 tab Q5M PRN SL CHEST PAIN; Start 11/06/16 at 07:00 Acetaminophen (Tylenol Tab) 650 mg Q6H PRN PO PAIN LEVEL 1-3 OR FEVER; Start at 07:00 Heparin Sodium (Porcine) (Heparin (5000 Units/0.5 ml)) 5,000 unit Q12 SC Last administered on 11/08/16 09:40; Admin Dose 5,000 UNIT; Start 11/06/16 at 09:00 Amlodipine Besylate (Norvasc) 10 mg DAILY PO Last administered on 11/08/16 09: 38; Admin Dose 10 MG; Start 11/06/16 at 09:00 Aspirin (Halfprin) 81 mg DAILY PO Last administered on 11/08/16 09:36; Admin Dose 81 MG; Start 11/06/16 at 09:00 Atorvastatin Calcium (Lipitor) 20 mg HS PO Last administered on 11/07/16 22:23 ; Admin Dose 20 MG; Start 11/06/16 at 21:00 Carvedilol (Coreg) 25 mg BID PO Last administered on 11/08/16 09:36; Admin Dose 25 MG; Start 11/06/16 at 09:00 Diphenhydramine HCl (Benadryl) 50 mg TID PO Last administered on 11/08/16 09: 35; Admin Dose 50 MG; Start 11/06/16 at 09:00 Potassium Chloride (Klor-Con 20) 20 meq DAILY PO Last administered on 09:37; Admin Dose 20 MEQ; Start 11/06/16 at 09:00 Ranolazine (Ranexa) 1,000 mg Q12 PO Last administered on 11/08/16 09:38; Admin Dose 1,000 MG; Start 11/06/16 at 09:00 Ticagrelor (Brilinta) 90 mg Q12 PO Last administered on 11/08/16 09:40; Admin Dose 90 MG; Start 11/06/16 at 09:00 Isosorbide Dinitrate (Isordil) 40 mg TID PO Last administered on 11/08/16 09: 37; Admin Dose 40 MG; Start 11/06/16 at 09:00 Acetaminophen/ Hydrocodone Bitart ([place] (10/325)) 1 tab Q6H PRN PO moderate pain; Start 11/06/16 at 22:00 Morphine Sulfate (morphine) 4 mg Q4H PRN IM severe pain Last administered on 09:49; Admin Dose 4 MG; Start 11/07/16 at 18:40 LYDIA BENNETT Nov 08, 2016 13:54
[2016-11-08] MEDS ORDERED: TICA90TA PO (15:28)
[2016-11-08] MEDS ORDERED: ATOR20TA38 PO (15:28)
[2016-11-08] MEDS ORDERED: AMLO-218 PO (15:28)
[2016-11-08] MEDS ORDERED: LAS20 PO (15:28)
[2016-11-08] MEDS ORDERED: RANO10002 PO (15:28)
[2016-11-08] MEDS ORDERED: CARV25TA79 PO (15:28)
[2016-11-08] MEDS ORDERED: ISOS40TA15 PO (15:28)
--- NOTE | 2016-11-08 15:32 | PDOCDIS ---
LYDIA BENNETT 11/08/16 1531: Discharge Instructions DIAGNOSIS Discharge Diagnosis: 1. Chest pain 2. CAD 3.WEN 4. Nbjgd-Dpqyajxht-Izpfi syndrome CONDITION Patient Condition: Stable HOME CARE INSTRUCTIONS: Special Diet: CARDIAC DIET ACTIVITY: Activity Restrictions: Slowly Increase Activity FOLLOW UP/APPOINTMENTS Appointments 1. Follow up with Dr. Abdirahman Gonzalez within one week for stress test MALLY NORWOOD MD 11/11/16 1143: Discharge Instructions CONDITION Patient Condition: Good HOME CARE INSTRUCTIONS: Special Diet: Cadiac low fat, low sodium diet ACTIVITY: Activity Restrictions: Rest between Activity Avoid heavy lifting Avoid Heavy Housework FOLLOW UP/APPOINTMENTS Appointments Follow up with cardiology and Nephrology as outpatient in 2 week after discharge LYDIA BENNETT Nov 08, 2016 15:31 MALLY NORWOOD MD Nov 11, 2016 11:43
--- NOTE | 2016-11-08 15:58 | CONS ---
Date/Time of Note Date/Time of Note DATE: 11/08/16 TIME: 15:57 Consultation Date/Type/Reason Admit Date/Time Nov 06, 2016 at 04:39 Initial Consult Date 11/06/16 Type of Consultation: renal Reason for Consultation [id number] renal consult Exam/Review of Systems Vital Signs Vitals Vital Signs Date Time Temp Pulse Resp B/P Pulse Ox O2 Delivery O2 Flow Rate FiO2 11/08/16 15:52 98.4 82 18 118/76 96 11/07/16 04:00 Room Air 11/06/16 16:58 2.0 Intake and Output 11/07/16 11/07/16 11/08/16 15:00 23:00 07:00 Intake Total 420 ml 600 ml Output Total 800 ml 800 ml Balance -380 ml -200 ml Results Result Diagram: 11/08/1651 11/08/16 0951 Results 24 hrs Laboratory Tests Test 11/08/16 04:30 11/08/16 09:51 Urine Bilirubin NEGATIVE Urine Clarity CLEAR Urine Color YELLOW Urine Glucose NEGATIVE Urine Hemoglobin NEGATIVE Urine Ketones NEGATIVE Urine Leukocyte Esterase NEGATIVE Urine Nitrite NEGATIVE Urine Protein/Creatinine Ratio Urine Random Creatinine Urine Random Sodium 45 Urine Specific [place] 1.010 Urine Total Protein Urine Urobilinogen 2.0 E.U./dL H Urine pH 6.0 Anion Gap 14 Band Neutrophils % 1.0 Basophils # Basophils % Blood Morphology Comment Blood Urea Nitrogen 19 Calcium Level 8.5 Carbon Dioxide Level 32 H Chloride Level 97 Creatinine 0.96 Differential Comment MANUAL DIFF Eosinophils # 0.0 Eosinophils % 1.0 Glucose Level 95 Hematocrit 31.3 L Hemoglobin 10.3 L Lymphocytes # 0.7 L Lymphocytes % 21.0 Mean Corpuscular Hemoglobin 26.6 L Mean Corpuscular Hemoglobin Concent 32.9 Mean Corpuscular Volume 80.7 L Mean Platelet Volume 7.2 L Monocytes # 0.3 Monocytes % 8.0 Neutrophils # 2.2 Neutrophils % 69.0 Nucleated Red Blood Cells # Nucleated Red Blood Cells % Phosphorus Level 2.2 L Platelet Count 159 Potassium Level 3.9 Red Blood Count 3.87 L Red Cell Distribution Width 22.5 H Sodium Level 139 White Blood Count 3.2 #L Medications Medications Current Medications Ondansetron HCl (Zofran Inj) 4 mg Q6H PRN IV NAUSEA AND/OR VOMITING; Start at 07:00 Nitroglycerin (Nitroglycerin (Sl Tab) 0.4 Mg) 1 tab Q5M PRN SL CHEST PAIN; Start 11/06/16 at 07:00 Acetaminophen (Tylenol Tab) 650 mg Q6H PRN PO PAIN LEVEL 1-3 OR FEVER; Start at 07:00 Heparin Sodium (Porcine) (Heparin (5000 Units/0.5 ml)) 5,000 unit Q12 SC Last administered on 11/08/16 09:40; Admin Dose 5,000 UNIT; Start 11/06/16 at 09:00 Amlodipine Besylate (Norvasc) 10 mg DAILY PO Last administered on 11/08/16 09: 38; Admin Dose 10 MG; Start 11/06/16 at 09:00 Aspirin (Halfprin) 81 mg DAILY PO Last administered on 11/08/16 09:36; Admin Dose 81 MG; Start 11/06/16 at 09:00 Atorvastatin Calcium (Lipitor) 20 mg HS PO Last administered on 11/07/16 22:23 ; Admin Dose 20 MG; Start 11/06/16 at 21:00 Carvedilol (Coreg) 25 mg BID PO Last administered on 11/08/16 09:36; Admin Dose 25 MG; Start 11/06/16 at 09:00 Diphenhydramine HCl (Benadryl) 50 mg TID PO Last administered on 11/08/16 14: 39; Admin Dose 50 MG; Start 11/06/16 at 09:00 Potassium Chloride (Klor-Con 20) 20 meq DAILY PO Last administered on 09:37; Admin Dose 20 MEQ; Start 11/06/16 at 09:00 Ranolazine (Ranexa) 1,000 mg Q12 PO Last administered on 11/08/16 09:38; Admin Dose 1,000 MG; Start 11/06/16 at 09:00 Ticagrelor (Brilinta) 90 mg Q12 PO Last administered on 11/08/16 09:40; Admin Dose 90 MG; Start 11/06/16 at 09:00 Isosorbide Dinitrate (Isordil) 40 mg TID PO Last administered on 11/08/16 14: 42; Admin Dose 40 MG; Start 11/06/16 at 09:00 Acetaminophen/ Hydrocodone Bitart ([place] (10/325)) 1 tab Q6H PRN PO moderate pain; Start 11/06/16 at 22:00 Morphine Sulfate (morphine) 4 mg Q4H PRN IM severe pain Last administered on t 15:05; Admin Dose 4 MG; Start 11/07/16 at 18:40 CORINA GRIFFITH MD Nov 08, 2016 15:58
--- NOTE | 2016-11-08 17:21 | CONS ---
DATE OF ADMISSION: 11/06/2016 DATE OF CONSULTATION: Thank you, Dr. Harris and Alfonso Meade, for kindly asking me to see this patient in consultation. HISTORY OF PRESENT ILLNESS: Mr. Tae Roper is a 55-year-old male who has a history of CKD, history of coronary artery bypass graft. Presented with shortness of breath and is being admitted for further management. The patient noted to have elevation of BUN and creatinine so nephrology consultation requested. The patient's hematocrit 31.3, platelet count of 159. The patient has a sodium 138, potassium 5.1, BUN 24, creatinine 2.28. In view of patient's abnormal electrolytes, nephrology consultation requested. PAST MEDICAL HISTORY: Positive for CAD, CABG, history of tachybrady syndrome, history of pacemaker placement, history of WPW syndrome, history of NM, history of SVT. ALLERGIES: 1. ATROPINE. 2. REGLAN. 3. PROCHLORPERAZINE. SOCIAL HISTORY: Negative. FAMILY HISTORY: Noncontributory. MEDICATION HISTORY: The patient is on: 1. [place]. 2. DuoNeb. 3. Norvasc. 4. Aspirin. 5. Lipitor. 6. Coreg. 7. Benadryl. 8. Lasix. 9. Isordil. 10. Morphine. 11. Nitroglycerin. 12. Zofran. 13. Potassium. 14. Ranexa. 15. Brilinta. REVIEW OF SYSTEMS: HEENT: Unremarkable. CARDIORESPIRATORY: Unremarkable for any chest pain, palpitations, or short of breath. ABDOMEN: Unremarkable. EXTREMITIES: Unremarkable. CENTRAL NERVOUS SYSTEM: Unremarkable. PHYSICAL EXAMINATION: GENERAL: The patient is awake, alert, not in any acute respiratory distress. VITAL SIGNS: Pulse 82, blood pressure 118/76. HEENT: Atraumatic, normocephalic. Pupils are equal, reactive to light. No pale conjunctivae or icterus. NECK: Supple. LUNGS: Clear anteriorly with few rhonchi. CHEST: CABG scar noted. ABDOMEN: Soft, nontender. Bowel sounds present. No palpable mass or hepatosplenomegaly. No guarding, rebound tenderness. EXTREMITIES: No cyanosis, clubbing, or edema. CENTRAL NERVOUS SYSTEM: The patient is awake, alert, moving both upper and lower extremities. LABORATORY DATA: WBC 3.2, hematocrit 31.3, platelet count of 159. Sodium 130, potassium 5.1, BUN of 24, creatinine 2.28. Chest x-ray shows left lung base discoid atelectasis. The patient has ultrasound shows unremarkable sonogram. IMPRESSION: 1. Acute kidney injury, mild renal insufficiency. 2. Anemia. 3. Coronary artery disease, history of coronary artery bypass graft. 4. Khaow-Odjyidnlk-Gvhbu syndrome. 5. History of pacemaker placement. 6. Rule out underlying pulmonary edema. PLAN: To continue to follow electrolytes, obtain urine electrolytes. The patient's diuretic will be adjusted as needed. The patient's renal parameters are going to be monitored. The patient will have urine studies done as well as orders _. Thank you, Dr. Harris, for kindly asking me to see this patient in nephrology consultation. Dictated By: CORINA GRIFFITH MD BS/NTS Conf#: [id number] DID#: [id number] CC: ALFONSO MEADE NP; LINNEA HARRIS MD;*EndCC* MTDD
[2016-11-08] MEDS: ATORVASTATIN 20 MG TAB PO SCH (20:45)
[2016-11-09] VITALS (10 sets, daily range): BP systolic 105–117; BP diastolic 56–66; PULSE 79–85; RESP 16–20
[2016-11-09] MEDS: morphine 4 MG/ML VIAL IM PRN ×4 (01:29→15:06)
[2016-11-09] MEDS: FUROSEMIDE 20 MG TAB PO SCH ×2 (05:34→18:42)
[2016-11-09] MEDS: SOD CHLORIDE 0.9% 1,000 ML IV SCH ×2 (07:00→13:20)
[2016-11-09] MEDS: DIPHENHYDRAMINE 50 MG CAP PO SCH ×3 (09:00→21:10)
[2016-11-09] MEDS: HEPARIN 5,000 UNIT/0.5 ML VIAL SC SCH ×2 (09:00→21:10)
[2016-11-09] MEDS: ISOSORBIDE DINITRATE 20 MG TAB PO SCH ×3 (09:00→21:12)
[2016-11-09 12:07] LABS: BASOPHILS % 0.1 % (0.0-2.0); EOSINOPHILS % 0.3 % (0.0-7.0); HEMATOCRIT 34.3 % (42.0-52.0); HEMOGLOBIN 11.1 g/dl (14.0-18.0); LYMPHOCYTES # 0.7 10^3/ul (0.8-2.9); LYMPHOCYTES % 19.7 % (15.0-51.0); MEAN CORPUSCULAR HEMOGLOBIN 26.2 pg (29.0-33.0); MEAN CORPUSCULAR HGB CONC 32.5 g/dl (32.0-37.0); MEAN CORPUSCULAR VOLUME 80.6 fl (82.0-101.0); MEAN PLATELET VOLUME 7.7 fl (7.4-10.4); MONOCYTE # 0.5 10^3/ul (0.3-0.9); MONOCYTES % 14.2 % (0.0-11.0); NEUTROPHIL # 2.3 10^3/ul (1.6-7.5); NEUTROPHILS % 65.7 % (39.0-77.0); PLATELET COUNT 173 10^3/UL (140-440); RED BLOOD COUNT 4.25 10^6/ul (4.70-6.10); RED CELL DISTRIBUTION WIDTH 23.7 % (11.5-14.5); UNCORRECTED WBC 3.6 10^3/ul (4.8-10.8); WHITE BLOOD COUNT 3.6 10^3/ul (4.8-10.8)
[2016-11-09 12:09] LABS: CONDITION 1; LH ANALYZER COMMENTS 1; POTASSIUM 4.5 mmol/L (3.5-5.1)
[2016-11-09 12:12] LABS: CREATININE 0.9 mg/dl (0.61-1.24)
[2016-11-09 12:13] LABS: CALCIUM 9.2 mg/dl (8.4-10.2)
[2016-11-09] MEDS ORDERED: REGADENOSON 0.4 MG/5 ML SYG IV ONE (13:00)
--- NOTE | 2016-11-09 13:25 | PN ---
Date/Time of Note Date/Time of Note DATE: 11/09/16 TIME: 13:23 Assessment/Plan VTE Prophylaxis VTE Prophylaxis Intervention: SCD's Lines/Catheters IV Catheter Type (from Nrs): NOT WORKING Assessment/Plan Chief Complaint/Hosp Course Assessment and plan 1. Chest pain. Troponin negative so far. Echocardiogram with ejection fraction of 55% with stage I diastolic dysfunction. Continue optimization with cardiovascular medications. Furnace Charger following. Tentative for stress test versus cardiac cath. We'll follow-up 2. History of CAD with CABG. Continue on statin and antiplatelet 3. History of tachybradycardia syndrome. Patient is status post ablation and pacemaker placement. Continue inpatient monitoring 4. History of Ahsgn-Yszrxefxa-Zodkk syndrome. Continue with cardiology recommendations 5. History of myocardial infarction when year ago. Continue on beta genet and 6. WEN. improved at present. cont with nephrology recs Disposition and plan: Awaiting stress test. Will follow up Discussed plan of care with Dr. Arellano Problems: Subjective 24 Hr Interval Summary Free Text/Dictation no s/s of distress. comfortable at present Exam/Review of Systems Vital Signs Vitals Vital Signs Date Time Temp Pulse Resp B/P Pulse Ox O2 Delivery O2 Flow Rate FiO2 11/09/16 12:21 80 11/09/16 12:00 98.1 18 114/64 94 Room Air 11/06/16 16:58 2.0 Intake and Output 11/08/16 11/08/16 11/09/16 14:59 22:59 06:59 Intake Total 1600 ml 1240 ml Output Total 2400 ml 2025 ml Balance -800 ml -785 ml Exam General: No acute signs or symptoms of distress Eyes: pupils equal round, Anicteric scler Neck: Supple nontender, no JVD Cardiac: S1, S2 auscultated, regular rhythm and rate Pulmonary: No coarse rhonchi or breathing auscultated GI: Abdomen soft nontender nondistended, bowel sounds active Extremities: No edema bilateral lower extremities Skin: Clean dry and intact Neurologic: Alert to person place and time and situation Results Result Diagram: 11/09/16 1107 11/09/16 1107 Results 24 hrs Laboratory Tests Test 11/09/16 11:07 Anion Gap 15 Basophils # 0.0 Basophils % 0.1 Blood Morphology Comment Blood Urea Nitrogen 18 Calcium Level 9.2 Carbon Dioxide Level 31 Chloride Level 99 Creatinine 0.90 Eosinophils # 0.0 Eosinophils % 0.3 Glucose Level 82 Hematocrit 34.3 L Hemoglobin 11.1 L Lymphocytes # 0.7 L Lymphocytes % 19.7 Mean Corpuscular Hemoglobin 26.2 L Mean Corpuscular Hemoglobin Concent 32.5 Mean Corpuscular Volume 80.6 L Mean Platelet Volume 7.7 Monocytes # 0.5 Monocytes % 14.2 H Neutrophils # 2.3 Neutrophils % 65.7 Nucleated Red Blood Cells # 0.0 Nucleated Red Blood Cells % 0.0 Platelet Count 173 Potassium Level 4.5 Red Blood Count 4.25 L Red Cell Distribution Width 23.7 H Sodium Level 140 White Blood Count 3.6 L Medications Medications Current Medications Ondansetron HCl (Zofran Inj) 4 mg Q6H PRN IV NAUSEA AND/OR VOMITING; Start at 07:00 Nitroglycerin (Nitroglycerin (Sl Tab) 0.4 Mg) 1 tab Q5M PRN SL CHEST PAIN; Start 11/06/16 at 07:00 Acetaminophen (Tylenol Tab) 650 mg Q6H PRN PO PAIN LEVEL 1-3 OR FEVER; Start at 07:00 Heparin Sodium (Porcine) (Heparin (5000 Units/0.5 ml)) 5,000 unit Q12 SC Last administered on 11/08/16 21:06; Admin Dose 5,000 UNIT; Start 11/06/16 at 09:00 Amlodipine Besylate (Norvasc) 10 mg DAILY PO Last administered on 11/08/16 09: 38; Admin Dose 10 MG; Start 11/06/16 at 09:00 Aspirin (Halfprin) 81 mg DAILY PO Last administered on 11/08/16 09:36; Admin Dose 81 MG; Start 11/06/16 at 09:00 Atorvastatin Calcium (Lipitor) 20 mg HS PO Last administered on 11/08/16 20:45 ; Admin Dose 20 MG; Start 11/06/16 at 21:00 Carvedilol (Coreg) 25 mg BID PO Last administered on 11/08/16 20:46; Admin Dose 25 MG; Start 11/06/16 at 09:00 Diphenhydramine HCl (Benadryl) 50 mg TID PO Last administered on 11/08/16 20: 45; Admin Dose 50 MG; Start 11/06/16 at 09:00 Potassium Chloride (Klor-Con 20) 20 meq DAILY PO Last administered on 09:37; Admin Dose 20 MEQ; Start 11/06/16 at 09:00 Ranolazine (Ranexa) 1,000 mg Q12 PO Last administered on 11/08/16 20:45; Admin Dose 1,000 MG; Start 11/06/16 at 09:00 Ticagrelor (Brilinta) 90 mg Q12 PO Last administered on 11/08/16 20:47; Admin Dose 90 MG; Start 11/06/16 at 09:00 Isosorbide Dinitrate (Isordil) 40 mg TID PO Last administered on 11/08/16 20: 47; Admin Dose 40 MG; Start 11/06/16 at 09:00 Acetaminophen/ Hydrocodone Bitart ([place] (10/325)) 1 tab Q6H PRN PO moderate pain; Start 11/06/16 at 22:00 Morphine Sulfate 4 mg 4 mg Q4H PRN IM severe pain Last administered on 10:06; Admin Dose 4 MG; Start 11/07/16 at 18:40 Sodium Chloride (NS) 1,000 ml @ 75 mls/hr [id number] IV ; Start 11/09/16 at 00:00 LYDIA BENNETT Nov 09, 2016 13:25
[2016-11-09] MEDS: RANOLAZINE (SR) 500 MG TAB PO SCH ×2 (15:00→21:11)
[2016-11-09] MEDS: POTASSIUM CHLORIDE (SR) 20 MEQ TAB PO SCH (15:01)
[2016-11-09] MEDS: ASPIRIN (EC) 81 MG TAB PO SCH (15:01)
[2016-11-09] MEDS: AMLODIPINE 10 MG TAB PO SCH (15:02)
[2016-11-09] MEDS: TICAGRELOR 90 MG TABLET PO SCH ×2 (15:04→21:20)
--- NOTE | 2016-11-09 17:16 | CONS ---
Date/Time of Note Date/Time of Note DATE: 11/09/16 TIME: 17:15 Assessment/Plan Assessment/Plan Chief Complaint/Hosp Course A/P WEN S/P CHF PLAN RENAL STABLE Problems: Consultation Date/Type/Reason Admit Date/Time Nov 06, 2016 at 04:39 Initial Consult Date 11/06/16 Type of Consultation: renal 24 HR Interval Summary Constitutional: no complaints Exam/Review of Systems Vital Signs Vitals Vital Signs Date Time Temp Pulse Resp B/P Pulse Ox O2 Delivery O2 Flow Rate FiO2 11/09/16 12:21 80 11/09/16 12:00 98.1 18 114/64 94 Room Air 11/06/16 16:58 2.0 Intake and Output 11/08/16 11/08/16 11/09/16 15:00 23:00 07:00 Intake Total 1600 ml 1240 ml Output Total 2400 ml 2025 ml Balance -800 ml -785 ml Exam Respiratory: clear to auscultation Cardiovascular: regular rate and rhythm Gastrointestinal: soft Results Result Diagram: 11/09/16 1107 11/09/16 1107 Results 24 hrs Laboratory Tests Test 11/09/16 11:07 Anion Gap 15 Basophils # 0.0 Basophils % 0.1 Blood Morphology Comment Blood Urea Nitrogen 18 Calcium Level 9.2 Carbon Dioxide Level 31 Chloride Level 99 Creatinine 0.90 Eosinophils # 0.0 Eosinophils % 0.3 Glucose Level 82 Hematocrit 34.3 L Hemoglobin 11.1 L Lymphocytes # 0.7 L Lymphocytes % 19.7 Mean Corpuscular Hemoglobin 26.2 L Mean Corpuscular Hemoglobin Concent 32.5 Mean Corpuscular Volume 80.6 L Mean Platelet Volume 7.7 Monocytes # 0.5 Monocytes % 14.2 H Neutrophils # 2.3 Neutrophils % 65.7 Nucleated Red Blood Cells # 0.0 Nucleated Red Blood Cells % 0.0 Platelet Count 173 Potassium Level 4.5 Red Blood Count 4.25 L Red Cell Distribution Width 23.7 H Sodium Level 140 White Blood Count 3.6 L Medications Medications Current Medications Ondansetron HCl (Zofran Inj) 4 mg Q6H PRN IV NAUSEA AND/OR VOMITING; Start at 07:00 Nitroglycerin (Nitroglycerin (Sl Tab) 0.4 Mg) 1 tab Q5M PRN SL CHEST PAIN; Start 11/06/16 at 07:00 Acetaminophen (Tylenol Tab) 650 mg Q6H PRN PO PAIN LEVEL 1-3 OR FEVER; Start at 07:00 Heparin Sodium (Porcine) (Heparin (5000 Units/0.5 ml)) 5,000 unit Q12 SC Last administered on 11/08/16 21:06; Admin Dose 5,000 UNIT; Start 11/06/16 at 09:00 Amlodipine Besylate (Norvasc) 10 mg DAILY PO Last administered on 11/09/16 15: 02; Admin Dose 10 MG; Start 11/06/16 at 09:00 Aspirin (Halfprin) 81 mg DAILY PO Last administered on 11/09/16 15:01; Admin Dose 81 MG; Start 11/06/16 at 09:00 Atorvastatin Calcium (Lipitor) 20 mg HS PO Last administered on 11/08/16 20:45 ; Admin Dose 20 MG; Start 11/06/16 at 21:00 Carvedilol (Coreg) 25 mg BID PO Last administered on 11/09/16 15:01; Admin Dose 25 MG; Start 11/06/16 at 09:00 Diphenhydramine HCl (Benadryl) 50 mg TID PO Last administered on 11/09/16 15: 02; Admin Dose 50 MG; Start 11/06/16 at 09:00 Potassium Chloride (Klor-Con 20) 20 meq DAILY PO Last administered on 15:01; Admin Dose 20 MEQ; Start 11/06/16 at 09:00 Ranolazine (Ranexa) 1,000 mg Q12 PO Last administered on 11/09/16 15:00; Admin Dose 1,000 MG; Start 11/06/16 at 09:00 Ticagrelor (Brilinta) 90 mg Q12 PO Last administered on 11/09/16 15:04; Admin Dose 90 MG; Start 11/06/16 at 09:00 Isosorbide Dinitrate (Isordil) 40 mg TID PO Last administered on 11/09/16 15: 01; Admin Dose 40 MG; Start 11/06/16 at 09:00 Acetaminophen/ Hydrocodone Bitart ([place] (10/325)) 1 tab Q6H PRN PO moderate pain; Start 11/06/16 at 22:00 Morphine Sulfate 4 mg 4 mg Q4H PRN IM severe pain Last administered on t 15:06; Admin Dose 4 MG; Start 11/07/16 at 18:40 Sodium Chloride (NS) 1,000 ml @ 75 mls/hr [id number] IV ; Start 11/09/16 at 00:00 CORINA GRIFFITH MD Nov 09, 2016 17:16
--- NOTE | 2016-11-09 17:37 | CONS ---
Date/Time of Note Date/Time of Note DATE: 11/09/16 TIME: 17:33 Assessment/Plan Assessment/Plan Chief Complaint/Hosp Course Chest pain and dyspnea on exertion: ruled out for myocardial infarction Moderate to severe aortic regurgitation Severe tricuspid regurgitation CAD s/p CABG History of ischemic cardiomyopathy: prior LVEF 40% per patient, now with LVEF 55 % on echocardiogram Acute renal failure vs chronic kidney disease: unknown baseline renal function WPW s/p ablation -echocardiogram showed LVEF 55%, mild LVH, mild diastolic dysfunction, moderate to severe AR, severe TR -continue aspirin, ticagrelor, Lipitor -continue Coreg, Isordil, Ranexa -continue Lasix 20mg BID, monitor renal function -Lexiscan SPECT rescheduled for tomorrow Problems: Consultation Date/Type/Reason Admit Date/Time Nov 06, 2016 at 04:39 Initial Consult Date 11/06/16 Type of Consultation: Cardiology 24 HR Interval Summary Free Text/Dictation Patient refused peripheral IV and was insisting on PICC line, which was not indicated. No IV access and was unable to perform Lexiscan SPECT. Patient now agreeable to peripheral IV. Discussed with patient about outpatient cardiac stress test, but he is insisting on having done as inpatient. 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 No chest pain or shortness of breath. Detailed Summary Additional Comments 14 point review of systems without changes. Exam/Review of Systems Vital Signs Vitals Vital Signs Date Time Temp Pulse Resp B/P Pulse Ox O2 Delivery O2 Flow Rate FiO2 11/09/16 12:21 80 11/09/16 12:00 98.1 18 114/64 94 Room Air 11/06/16 16:58 2.0 Intake and Output 11/08/16 11/08/16 11/09/16 15:00 23:00 07:00 Intake Total 1600 ml 1240 ml Output Total 2400 ml 2025 ml Balance -800 ml -785 ml Exam Constitutional: alert, oriented Psych: no complaints Head: atraumatic, normocephalic Eyes: nl conjunctiva Neck: No jvd Respiratory: clear to auscultation, No crackles/rales Cardiovascular: edema (1+), regular rate and rhythm, No systolic murmur Gastrointestinal: non-tender, soft Musculoskeletal: nl extremities to inspection Extremities: normal pulses Neurological: nl mental status, nl speech Skin: No rash or lesions Results Result Diagram: 11/09/16 1107 11/09/16 1107 Results 24 hrs Laboratory Tests Test 11/09/16 11:07 Anion Gap 15 Basophils # 0.0 Basophils % 0.1 Blood Morphology Comment Blood Urea Nitrogen 18 Calcium Level 9.2 Carbon Dioxide Level 31 Chloride Level 99 Creatinine 0.90 Eosinophils # 0.0 Eosinophils % 0.3 Glucose Level 82 Hematocrit 34.3 L Hemoglobin 11.1 L Lymphocytes # 0.7 L Lymphocytes % 19.7 Mean Corpuscular Hemoglobin 26.2 L Mean Corpuscular Hemoglobin Concent 32.5 Mean Corpuscular Volume 80.6 L Mean Platelet Volume 7.7 Monocytes # 0.5 Monocytes % 14.2 H Neutrophils # 2.3 Neutrophils % 65.7 Nucleated Red Blood Cells # 0.0 Nucleated Red Blood Cells % 0.0 Platelet Count 173 Potassium Level 4.5 Red Blood Count 4.25 L Red Cell Distribution Width 23.7 H Sodium Level 140 White Blood Count 3.6 L Medications Medications Current Medications Ondansetron HCl (Zofran Inj) 4 mg Q6H PRN IV NAUSEA AND/OR VOMITING; Start at 07:00 Nitroglycerin (Nitroglycerin (Sl Tab) 0.4 Mg) 1 tab Q5M PRN SL CHEST PAIN; Start 11/06/16 at 07:00 Acetaminophen (Tylenol Tab) 650 mg Q6H PRN PO PAIN LEVEL 1-3 OR FEVER; Start at 07:00 Heparin Sodium (Porcine) (Heparin (5000 Units/0.5 ml)) 5,000 unit Q12 SC Last administered on 11/08/16 21:06; Admin Dose 5,000 UNIT; Start 11/06/16 at 09:00 Amlodipine Besylate (Norvasc) 10 mg DAILY PO Last administered on 11/09/16 15: 02; Admin Dose 10 MG; Start 11/06/16 at 09:00 Aspirin (Halfprin) 81 mg DAILY PO Last administered on 11/09/16 15:01; Admin Dose 81 MG; Start 11/06/16 at 09:00 Atorvastatin Calcium (Lipitor) 20 mg HS PO Last administered on 11/08/16 20:45 ; Admin Dose 20 MG; Start 11/06/16 at 21:00 Carvedilol (Coreg) 25 mg BID PO Last administered on 11/09/16 15:01; Admin Dose 25 MG; Start 11/06/16 at 09:00 Diphenhydramine HCl (Benadryl) 50 mg TID PO Last administered on 11/09/16 15: 02; Admin Dose 50 MG; Start 11/06/16 at 09:00 Potassium Chloride (Klor-Con 20) 20 meq DAILY PO Last administered on 15:01; Admin Dose 20 MEQ; Start 11/06/16 at 09:00 Ranolazine (Ranexa) 1,000 mg Q12 PO Last administered on 11/09/16 15:00; Admin Dose 1,000 MG; Start 11/06/16 at 09:00 Ticagrelor (Brilinta) 90 mg Q12 PO Last administered on 11/09/16 15:04; Admin Dose 90 MG; Start 11/06/16 at 09:00 Isosorbide Dinitrate (Isordil) 40 mg TID PO Last administered on 11/09/16 15: 01; Admin Dose 40 MG; Start 11/06/16 at 09:00 Acetaminophen/ Hydrocodone Bitart ([place] (10/325)) 1 tab Q6H PRN PO moderate pain; Start 11/06/16 at 22:00 Morphine Sulfate 4 mg 4 mg Q4H PRN IM severe pain Last administered on 15:06; Admin Dose 4 MG; Start 11/07/16 at 18:40 Sodium Chloride (NS) 1,000 ml @ 75 mls/hr [id number] IV ; Start 11/09/16 at 00:00 KENDRA MCKAY MD Nov 09, 2016 17:37
[2016-11-09] MEDS: morphine 4 MG/ML VIAL IV PRN (21:09)
[2016-11-09] MEDS: ATORVASTATIN 20 MG TAB PO SCH (21:12)
[2016-11-09] MEDS ORDERED: morphine 4 MG/ML VIAL IV PRN (22:40)
[2016-11-10] VITALS (14 sets, daily range): BP systolic 110–133; BP diastolic 55–81; PULSE 72–90; RESP 16–20
[2016-11-10] MEDS: morphine 4 MG/ML VIAL IV PRN ×4 (02:37→19:50)
[2016-11-10] MEDS: SOD CHLORIDE 0.9% 1,000 ML IV SCH (02:40)
[2016-11-10] MEDS: FUROSEMIDE 20 MG TAB PO SCH ×2 (06:00→17:41)
[2016-11-10] MEDS: DIPHENHYDRAMINE 50 MG CAP PO SCH ×3 (09:00→20:44)
[2016-11-10] MEDS: RANOLAZINE (SR) 500 MG TAB PO SCH ×3 (09:00→20:45)
[2016-11-10] MEDS: POTASSIUM CHLORIDE (SR) 20 MEQ TAB PO SCH ×2 (09:00→11:58)
[2016-11-10] MEDS: ASPIRIN (EC) 81 MG TAB PO SCH ×2 (09:00→11:57)
[2016-11-10] MEDS: TICAGRELOR 90 MG TABLET PO SCH ×3 (09:00→21:20)
[2016-11-10] MEDS: HEPARIN 5,000 UNIT/0.5 ML VIAL SC SCH ×3 (09:00→21:21)
[2016-11-10] MEDS: ISOSORBIDE DINITRATE 20 MG TAB PO SCH ×3 (09:00→21:06)
[2016-11-10] MEDS: AMLODIPINE 10 MG TAB PO SCH ×2 (09:00→11:58)
--- NOTE | 2016-11-10 11:58 | CONS ---
Date/Time of Note Date/Time of Note DATE: 11/10/16 TIME: 11:54 Assessment/Plan Assessment/Plan Chief Complaint/Hosp Course Chest pain/SOB: Could be secondary to graft failure vs from severe TR Severe TR: likely as a result of multiple prior ICD leads which were exacted during surgery. May need eval for annuloplasty/valve repair in future. CAD s/p CABG: as above ICM: EF 40% per pt now 50% on echo Acute renal failure vs CKD: Unknown baseline renal function but now resolved WPW s/p ablation -continue ASA, ticagrelor, lipitor -coreg 25mg BID -isordil, amlodipine, ranexa -lasix 20mg BID -reattempt stress test tomorrow am Problems: Consultation Date/Type/Reason Admit Date/Time Nov 06, 2016 at 04:39 Initial Consult Date 11/06/16 Type of Consultation: Cardiology 24 HR Interval Summary Free Text/Dictation No o/n events. This am was supposed to have stress MPI but IV infiltrated so cancelled. Plan for PICC today. Pt denies CP. He wants inpt testing. Exam/Review of Systems Vital Signs Vitals Vital Signs Date Time Temp Pulse Resp B/P Pulse Ox O2 Delivery O2 Flow Rate FiO2 11/10/16 11:52 98.0 80 20 133/81 94 Room Air 11/09/16 23:42 21 11/06/16 16:58 2.0 Intake and Output 11/09/16 11/09/16 11/10/16 15:00 23:00 07:00 Intake Total 1600 ml Output Total 2700 ml 1800 ml Balance -2700 ml -200 ml Exam Constitutional: alert, oriented Head: atraumatic, normocephalic Neck: No jvd Respiratory: clear to auscultation Cardiovascular: regular rate and rhythm, No edema Gastrointestinal: soft Neurological: nl mental status, nl speech Results Result Diagram: 11/09/16 1107 11/09/16 1107 Results 24 hrs Laboratory Tests Test 11/10/16 10:20 Lab Scanned Report REFERENCE LAB Medications Medications Current Medications Ondansetron HCl (Zofran Inj) 4 mg Q6H PRN IV NAUSEA AND/OR VOMITING; Start at 07:00 Nitroglycerin (Nitroglycerin (Sl Tab) 0.4 Mg) 1 tab Q5M PRN SL CHEST PAIN; Start 11/06/16 at 07:00 Acetaminophen (Tylenol Tab) 650 mg Q6H PRN PO PAIN LEVEL 1-3 OR FEVER; Start at 07:00 Heparin Sodium (Porcine) (Heparin (5000 Units/0.5 ml)) 5,000 unit Q12 SC Last administered on 11/09/16 21:10; Admin Dose 5,000 UNIT; Start 11/06/16 at 09:00 Amlodipine Besylate (Norvasc) 10 mg DAILY PO Last administered on 11/09/16 15: 02; Admin Dose 10 MG; Start 11/06/16 at 09:00 Aspirin (Halfprin) 81 mg DAILY PO Last administered on 11/09/16 15:01; Admin Dose 81 MG; Start 11/06/16 at 09:00 Atorvastatin Calcium (Lipitor) 20 mg HS PO Last administered on 11/09/16 21:12 ; Admin Dose 20 MG; Start 11/06/16 at 21:00 Carvedilol (Coreg) 25 mg BID PO Last administered on 11/09/16 21:11; Admin Dose 25 MG; Start 11/06/16 at 09:00 Diphenhydramine HCl (Benadryl) 50 mg TID PO Last administered on 11/09/16 21: 10; Admin Dose 50 MG; Start 11/06/16 at 09:00 Potassium Chloride (Klor-Con 20) 20 meq DAILY PO Last administered on 15:01; Admin Dose 20 MEQ; Start 11/06/16 at 09:00 Ranolazine (Ranexa) 1,000 mg Q12 PO Last administered on 11/09/16 21:11; Admin Dose 1,000 MG; Start 11/06/16 at 09:00 Ticagrelor (Brilinta) 90 mg Q12 PO Last administered on 11/09/16 21:20; Admin Dose 90 MG; Start 11/06/16 at 09:00 Isosorbide Dinitrate (Isordil) 40 mg TID PO Last administered on 11/09/16 21: 12; Admin Dose 40 MG; Start 11/06/16 at 09:00 Acetaminophen/ Hydrocodone Bitart 1 tab 1 tab Q6H PRN PO moderate pain; Start 11/06/16 at 22:00 Sodium Chloride (NS) 1,000 ml @ 75 mls/hr [id number] IV ; Start 11/09/16 at 00:00 Morphine Sulfate (morphine) 4 mg Q4H PRN IV severe pain Last administered on t 11:06; Admin Dose 4 MG; Start 11/09/16 at 20:00 Lidocaine (Xylocaine 1% (Mdv) 20 ml) 20 ml ONCE ONCE SC ; Start 11/10/16 at 12: 00; Stop 11/10/16 at 12:01; Status UNGAUTAM MCKEON Nov 10, 2016 11:58
--- NOTE | 2016-11-10 12:20 | PN ---
Date/Time of Note Date/Time of Note DATE: 11/10/16 TIME: 12:18 Assessment/Plan VTE Prophylaxis VTE Prophylaxis Intervention: SCD's Lines/Catheters IV Catheter Type (from Nrs): Saline Lock Assessment/Plan Assessment/Plan 1. Chest pain. Troponin negative so far. Echocardiogram with ejection fraction of 55% with stage I diastolic dysfunction. Continue optimization with cardiovascular medications. [employer] following. Tentative for stress test versus cardiac cath. We'll follow-up 2. History of CAD with CABG. Continue on statin and antiplatelet 3. History of tachybradycardia syndrome. Patient is status post ablation and pacemaker placement. Continue inpatient monitoring 4. History of Vfzrl-Oarkgyeey-Zgdxu syndrome. Continue with cardiology recommendations 5. History of myocardial infarction when year ago. Continue on beta genet and 6. WEN. improved at present. PICC line placement for IV access, Stress test tomorrow Subjective 24 Hr Interval Summary Free Text/Dictation no IV access, BP stable, lexiscan cancelled Exam/Review of Systems Vital Signs Vitals Vital Signs Date Time Temp Pulse Resp B/P Pulse Ox O2 Delivery O2 Flow Rate FiO2 11/10/16 11:52 98.0 80 20 133/81 94 Room Air 11/09/16 23:42 21 11/06/16 16:58 2.0 Intake and Output 11/09/16 11/09/16 11/10/16 14:59 22:59 06:59 Intake Total 1600 ml Output Total 2700 ml 1800 ml Balance -2700 ml -200 ml Exam General: No acute signs or symptoms of distress Eyes: pupils equal round, Anicteric scler Neck: Supple nontender, no JVD Cardiac: S1, S2 auscultated, regular rhythm and rate Pulmonary: No coarse rhonchi or breathing auscultated GI: Abdomen soft nontender nondistended, bowel sounds active Extremities: No edema bilateral lower extremities Skin: Clean dry and intact Neurologic: Alert to person place and time and situation Results Result Diagram: 11/09/16 1107 11/09/16 1107 Results 24 hrs Laboratory Tests Test 11/10/16 10:20 Lab Scanned Report REFERENCE LAB Medications Medications Current Medications Ondansetron HCl (Zofran Inj) 4 mg Q6H PRN IV NAUSEA AND/OR VOMITING; Start at 07:00 Nitroglycerin (Nitroglycerin (Sl Tab) 0.4 Mg) 1 tab Q5M PRN SL CHEST PAIN; Start 11/06/16 at 07:00 Acetaminophen (Tylenol Tab) 650 mg Q6H PRN PO PAIN LEVEL 1-3 OR FEVER; Start at 07:00 Heparin Sodium (Porcine) (Heparin (5000 Units/0.5 ml)) 5,000 unit Q12 SC Last administered on 11/10/16 12:01; Admin Dose 5,000 UNIT; Start 11/06/16 at 09:00 Amlodipine Besylate (Norvasc) 10 mg DAILY PO Last administered on 11/10/16 11: 58; Admin Dose 10 MG; Start 11/06/16 at 09:00 Aspirin (Halfprin) 81 mg DAILY PO Last administered on 11/10/16 11:57; Admin Dose 81 MG; Start 11/06/16 at 09:00 Atorvastatin Calcium (Lipitor) 20 mg HS PO Last administered on 11/09/16 21:12 ; Admin Dose 20 MG; Start 11/06/16 at 21:00 Carvedilol (Coreg) 25 mg BID PO Last administered on 11/09/16 21:11; Admin Dose 25 MG; Start 11/06/16 at 09:00 Diphenhydramine HCl (Benadryl) 50 mg TID PO Last administered on 11/10/16 11: 56; Admin Dose 50 MG; Start 11/06/16 at 09:00 Potassium Chloride (Klor-Con 20) 20 meq DAILY PO Last administered on 11:58; Admin Dose 20 MEQ; Start 11/06/16 at 09:00 Ranolazine (Ranexa) 1,000 mg Q12 PO Last administered on 11/10/16 11:57; Admin Dose 1,000 MG; Start 11/06/16 at 09:00 Ticagrelor (Brilinta) 90 mg Q12 PO Last administered on 11/10/16 12:00; Admin Dose 90 MG; Start 11/06/16 at 09:00 Isosorbide Dinitrate (Isordil) 40 mg TID PO Last administered on 11/10/16 11: 58; Admin Dose 40 MG; Start 11/06/16 at 09:00 Acetaminophen/ Hydrocodone Bitart ([place] (10/325)) 1 tab Q6H PRN PO moderate pain; Start 11/06/16 at 22:00 Morphine Sulfate (morphine) 4 mg Q4H PRN IV severe pain Last administered on t 11:06; Admin Dose 4 MG; Start 11/09/16 at 20:00 Lidocaine (Xylocaine 1% (Mdv) 20 ml) 20 ml ONCE ONCE SC ; Start 11/10/16 at 12: 00; Stop 11/10/16 at 12:01; Status UNV MALLY NORWOOD MD Nov 10, 2016 12:19
[2016-11-10] MEDS ORDERED: LIDOCAINE 1% (MDV) 20 ML INJ SC ONE (12:30)
--- NOTE | 2016-11-10 15:02 | RADRPT ---
PROCEDURE: US guidance for PICC line CLINICAL INDICATION: PICC line placement TECHNIQUE: Multiple real-time images were acquired of the patient's arm utilizing a high resolutio n transducer. This was performed by the PICC line nurse for venous access. COMPARISON: None FINDINGS: Ultrasound guidance for PICC line placement. IMPRESSION: Ultrasound guidance for PICC line placement. RPTAT: AA .Aren Dennis MD, MD Date Time Electronically viewed and signed by .Aren Dennis MD, on 11/10/2016 15:02 .S/
[2016-11-10] MEDS ORDERED: SOD CHLORIDE 0.9% 100 ML ONE (16:00)
[2016-11-10 16:06] LABS: EOSINOPHILS % 0.2 % (0.0-7.0); HEMATOCRIT 30.8 % (42.0-52.0); HEMOGLOBIN 10.1 g/dl (14.0-18.0); LYMPHOCYTES # 0.5 10^3/ul (0.8-2.9); LYMPHOCYTES % 13.7 % (15.0-51.0); MEAN CORPUSCULAR HEMOGLOBIN 26.1 pg (29.0-33.0); MEAN CORPUSCULAR HGB CONC 32.7 g/dl (32.0-37.0); MEAN CORPUSCULAR VOLUME 79.8 fl (82.0-101.0); MEAN PLATELET VOLUME 7.9 fl (7.4-10.4); MONOCYTE # 0.5 10^3/ul (0.3-0.9); MONOCYTES % 14.1 % (0.0-11.0); NEUTROPHIL # 2.7 10^3/ul (1.6-7.5); PLATELET COUNT 170 10^3/UL (140-440); RED BLOOD COUNT 3.86 10^6/ul (4.70-6.10); RED CELL DISTRIBUTION WIDTH 22.3 % (11.5-14.5); UNCORRECTED WBC 3.7 10^3/ul (4.8-10.8); WHITE BLOOD COUNT 3.7 10^3/ul (4.8-10.8)
[2016-11-10 16:11] LABS: CONDITION 1; LH ANALYZER COMMENTS 1
[2016-11-10 16:18] LABS: POTASSIUM 4.3 mmol/L (3.5-5.1)
[2016-11-10 16:20] LABS: CREATININE 0.97 mg/dl (0.61-1.24)
[2016-11-10 16:21] LABS: CALCIUM 9.6 mg/dl (8.4-10.2)
[2016-11-10] MEDS: ATORVASTATIN 20 MG TAB PO SCH (20:44)
--- NOTE | 2016-11-10 21:03 | CONS ---
Date/Time of Note Date/Time of Note DATE: 11/10/16 TIME: 21:03 Assessment/Plan Assessment/Plan Chief Complaint/Hosp Course A/P WEN BETTER S/P CHF PLAN RENAL STABLE WILL SEE PRN Problems: Consultation Date/Type/Reason Admit Date/Time Nov 10, 2016 at 14:26 Initial Consult Date 11/06/16 Type of Consultation: RENAL 24 HR Interval Summary Constitutional: no complaints Exam/Review of Systems Vital Signs Vitals Vital Signs Date Time Temp Pulse Resp B/P Pulse Ox O2 Delivery O2 Flow Rate FiO2 11/10/16 20:45 79 11/10/16 15:46 98.1 20 124/76 95 Room Air 11/09/16 23:42 21 11/06/16 16:58 2.0 Intake and Output 11/09/16 11/09/16 11/10/16 15:00 23:00 07:00 Intake Total 1600 ml Output Total 2700 ml 1800 ml Balance -2700 ml -200 ml Exam Cardiovascular: regular rate and rhythm Gastrointestinal: soft Musculoskeletal: nl extremities to inspection Results Result Diagram: 11/10/16 1458 11/10/16 1458 Results 24 hrs Laboratory Tests Test 11/10/16 10:20 11/10/16 14:58 Lab Scanned Report REFERENCE LAB Anion Gap 15 Basophils # 0.0 Basophils % 0.0 Blood Morphology Comment Blood Urea Nitrogen 17 Calcium Level 9.6 Carbon Dioxide Level 27 Chloride Level 102 Creatinine 0.97 Eosinophils # 0.0 Eosinophils % 0.2 Glucose Level 89 Hematocrit 30.8 L Hemoglobin 10.1 L Lymphocytes # 0.5 L Lymphocytes % 13.7 L Mean Corpuscular Hemoglobin 26.1 L Mean Corpuscular Hemoglobin Concent 32.7 Mean Corpuscular Volume 79.8 L Mean Platelet Volume 7.9 Monocytes # 0.5 Monocytes % 14.1 H Neutrophils # 2.7 Neutrophils % 72.0 Nucleated Red Blood Cells # 0.0 Nucleated Red Blood Cells % 0.0 Platelet Count 170 Potassium Level 4.3 Red Blood Count 3.86 L Red Cell Distribution Width 22.3 H Sodium Level 140 White Blood Count 3.7 L Medications Medications Current Medications Ondansetron HCl (Zofran Inj) 4 mg Q6H PRN IV NAUSEA AND/OR VOMITING; Start at 07:00 Nitroglycerin (Nitroglycerin (Sl Tab) 0.4 Mg) 1 tab Q5M PRN SL CHEST PAIN; Start 11/06/16 at 07:00 Acetaminophen (Tylenol Tab) 650 mg Q6H PRN PO PAIN LEVEL 1-3 OR FEVER; Start at 07:00 Heparin Sodium (Porcine) (Heparin (5000 Units/0.5 ml)) 5,000 unit Q12 SC Last administered on 11/10/16 12:01; Admin Dose 5,000 UNIT; Start 11/06/16 at 09:00 Amlodipine Besylate (Norvasc) 10 mg DAILY PO Last administered on 11/10/16 11: 58; Admin Dose 10 MG; Start 11/06/16 at 09:00 Aspirin (Halfprin) 81 mg DAILY PO Last administered on 11/10/16 11:57; Admin Dose 81 MG; Start 11/06/16 at 09:00 Atorvastatin Calcium (Lipitor) 20 mg HS PO Last administered on 11/10/16 20:44 ; Admin Dose 20 MG; Start 11/06/16 at 21:00 Carvedilol (Coreg) 25 mg BID PO Last administered on 11/09/16 21:11; Admin Dose 25 MG; Start 11/06/16 at 09:00 Diphenhydramine HCl (Benadryl) 50 mg TID PO Last administered on 11/10/16 20: 44; Admin Dose 50 MG; Start 11/06/16 at 09:00 Potassium Chloride (Klor-Con 20) 20 meq DAILY PO Last administered on 11:58; Admin Dose 20 MEQ; Start 11/06/16 at 09:00 Ranolazine (Ranexa) 1,000 mg Q12 PO Last administered on 11/10/16 20:45; Admin Dose 1,000 MG; Start 11/06/16 at 09:00 Ticagrelor (Brilinta) 90 mg Q12 PO Last administered on 11/10/16 12:00; Admin Dose 90 MG; Start 11/06/16 at 09:00 Isosorbide Dinitrate (Isordil) 40 mg TID PO Last administered on 11/10/16 11: 58; Admin Dose 40 MG; Start 11/06/16 at 09:00 Acetaminophen/ Hydrocodone Bitart ([place] (10/325)) 1 tab Q6H PRN PO moderate pain; Start 11/06/16 at 22:00 Morphine Sulfate (morphine) 4 mg Q4H PRN IV severe pain Last administered on t 19:50; Admin Dose 4 MG; Start 11/09/16 at 20:00 IV Flush (NS 10 ml) 10 ml PRN PRN IV IV PROTOCOL; Start 11/10/16 at 16:30 CORINA GRIFFITH MD Nov 10, 2016 21:03
[2016-11-11] VITALS (8 sets, daily range): BP systolic 105–134; BP diastolic 60–73; PULSE 79–87; RESP 15–20
[2016-11-11] MEDS: morphine 4 MG/ML VIAL IV PRN ×4 (00:20→13:00)
[2016-11-11] MEDS: FUROSEMIDE 20 MG TAB PO SCH (06:00)
[2016-11-11 07:23] LABS: POTASSIUM 4.8 mmol/L (3.5-5.1)
[2016-11-11 07:25] LABS: CREATININE 0.92 mg/dl (0.61-1.24)
[2016-11-11 07:27] LABS: CALCIUM 8.6 mg/dl (8.4-10.2)
[2016-11-11] MEDS: ISOSORBIDE DINITRATE 20 MG TAB PO SCH ×2 (08:08→12:40)
[2016-11-11] MEDS: DIPHENHYDRAMINE 50 MG CAP PO SCH ×2 (08:08→11:06)
--- NOTE | 2016-11-11 09:15 | CONS ---
Date/Time of Note Date/Time of Note DATE: 11/11/16 TIME: 09:13 Assessment/Plan Assessment/Plan Chief Complaint/Hosp Course Chest pain/SOB: Could be secondary to graft failure vs from severe TR Severe TR: likely as a result of multiple prior ICD leads which were exacted during surgery. May need eval for annuloplasty/valve repair in future. CAD s/p CABG: as above ICM: EF 40% per pt now 50% on echo Acute renal failure vs CKD: Unknown baseline renal function but now resolved WPW s/p ablation -continue ASA, ticagrelor, lipitor -coreg 25mg BID -isordil, amlodipine, ranexa -lasix 20mg BID -stress MPI today Problems: Consultation Date/Type/Reason Admit Date/Time Nov 10, 2016 at 14:26 Initial Consult Date 11/06/16 Type of Consultation: Cardiology 24 HR Interval Summary Free Text/Dictation No o/n events. S/p PICC insertion. MPI today Exam/Review of Systems Vital Signs Vitals Vital Signs Date Time Temp Pulse Resp B/P Pulse Ox O2 Delivery O2 Flow Rate FiO2 11/11/16 07:37 98.1 80 18 105/61 95 Room Air 11/11/16 06:28 3.0 11/09/16 23:42 21 Intake and Output 11/10/16 11/10/16 11/11/16 15:00 23:00 07:00 Intake Total 1140 ml Output Total 2700 ml 1100 ml Balance -1560 ml -1100 ml Exam Constitutional: alert, oriented Head: normocephalic Neck: No jvd Respiratory: clear to auscultation, No crackles/rales Cardiovascular: regular rate and rhythm, No edema Gastrointestinal: non-tender, soft Extremities: normal pulses Neurological: nl mental status, nl speech Results Result Diagram: 11/10/16 1458 11/11/16 0623 Results 24 hrs Laboratory Tests Test 11/10/16 10:20 11/10/16 14:58 11/11/16 06:23 Lab Scanned Report REFERENCE LAB Anion Gap 15 15 Basophils # 0.0 Basophils % 0.0 Blood Morphology Comment Blood Urea Nitrogen 17 18 Calcium Level 9.6 8.6 Carbon Dioxide Level 27 26 Chloride Level 102 103 Creatinine 0.97 0.92 Eosinophils # 0.0 Eosinophils % 0.2 Glucose Level 89 79 Hematocrit 30.8 L Hemoglobin 10.1 L Lymphocytes # 0.5 L Lymphocytes % 13.7 L Mean Corpuscular Hemoglobin 26.1 L Mean Corpuscular Hemoglobin Concent 32.7 Mean Corpuscular Volume 79.8 L Mean Platelet Volume 7.9 Monocytes # 0.5 Monocytes % 14.1 H Neutrophils # 2.7 Neutrophils % 72.0 Nucleated Red Blood Cells # 0.0 Nucleated Red Blood Cells % 0.0 Platelet Count 170 Potassium Level 4.3 4.8 Red Blood Count 3.86 L Red Cell Distribution Width 22.3 H Sodium Level 140 139 White Blood Count 3.7 L Medications Medications Current Medications Ondansetron HCl (Zofran Inj) 4 mg Q6H PRN IV NAUSEA AND/OR VOMITING; Start at 07:00 Nitroglycerin (Nitroglycerin (Sl Tab) 0.4 Mg) 1 tab Q5M PRN SL CHEST PAIN; Start 11/06/16 at 07:00 Acetaminophen (Tylenol Tab) 650 mg Q6H PRN PO PAIN LEVEL 1-3 OR FEVER; Start at 07:00 Heparin Sodium (Porcine) (Heparin (5000 Units/0.5 ml)) 5,000 unit Q12 SC Last administered on 11/10/16 21:21; Admin Dose 5,000 UNIT; Start 11/06/16 at 09:00 Amlodipine Besylate (Norvasc) 10 mg DAILY PO Last administered on 11/10/16 11: 58; Admin Dose 10 MG; Start 11/06/16 at 09:00 Aspirin (Halfprin) 81 mg DAILY PO Last administered on 11/10/16 11:57; Admin Dose 81 MG; Start 11/06/16 at 09:00 Atorvastatin Calcium (Lipitor) 20 mg HS PO Last administered on 11/10/16 20:44 ; Admin Dose 20 MG; Start 11/06/16 at 21:00 Carvedilol (Coreg) 25 mg BID PO Last administered on 11/10/16 21:05; Admin Dose 25 MG; Start 11/06/16 at 09:00 Diphenhydramine HCl (Benadryl) 50 mg TID PO Last administered on 11/10/16 20: 44; Admin Dose 50 MG; Start 11/06/16 at 09:00 Potassium Chloride (Klor-Con 20) 20 meq DAILY PO Last administered on 11:58; Admin Dose 20 MEQ; Start 11/06/16 at 09:00 Ranolazine (Ranexa) 1,000 mg Q12 PO Last administered on 11/10/16 20:45; Admin Dose 1,000 MG; Start 11/06/16 at 09:00 Ticagrelor (Brilinta) 90 mg Q12 PO Last administered on 11/10/16 21:20; Admin Dose 90 MG; Start 11/06/16 at 09:00 Isosorbide Dinitrate (Isordil) 40 mg TID PO Last administered on 11/10/16 21: 06; Admin Dose 40 MG; Start 11/06/16 at 09:00 Acetaminophen/ Hydrocodone Bitart ([place] (10/325)) 1 tab Q6H PRN PO moderate pain; Start 11/06/16 at 22:00 Morphine Sulfate (morphine) 4 mg Q4H PRN IV severe pain Last administered on 09:05; Admin Dose 4 MG; Start 11/09/16 at 20:00 IV Flush (NS 10 ml) 10 ml PRN PRN IV IV PROTOCOL; Start 11/10/16 at 16:30 GAUTAM MUNIZ Nov 11, 2016 09:14
[2016-11-11 09:27] LABS: HEMATOCRIT 29.9 % (42.0-52.0); HEMOGLOBIN 9.9 g/dl (14.0-18.0); MEAN CORPUSCULAR HEMOGLOBIN 26.6 pg (29.0-33.0); MEAN CORPUSCULAR HGB CONC 33.2 g/dl (32.0-37.0); MEAN CORPUSCULAR VOLUME 80.3 fl (82.0-101.0); MEAN PLATELET VOLUME 7.9 fl (7.4-10.4); PLATELET COUNT 152 10^3/UL (140-440); RED BLOOD COUNT 3.72 10^6/ul (4.70-6.10); RED CELL DISTRIBUTION WIDTH 22.4 % (11.5-14.5); UNCORRECTED WBC 3.5 10^3/ul (4.8-10.8); WHITE BLOOD COUNT 3.5 10^3/ul (4.8-10.8)
[2016-11-11 09:30] LABS: CONDITION 1; LH ANALYZER COMMENTS 1
[2016-11-11] MEDS ORDERED: REGADENOSON 0.4 MG/5 ML SYG ONE (09:55)
--- NOTE | 2016-11-11 10:24 | OPR ---
Date/Time of Note Date/Time of Note DATE: 11/11/16 TIME: 10:24 Operative Report Free Text/Dictation Nuclear medicine myocardial perfusion imaging: Date: 11/11/2016 Indication: Chest pain with h/o CAD/CABG. After informed consent, the patient was given IV Lexiscan. Pt was monitored for a total of 8 minutes post-infusion without any sings of arrhythmias. Patient had nausea but no chest pain or EKG changes. Please refer to separate note for imaging results. GAUTAM MUNIZ Nov 11, 2016 10:24
--- NOTE | 2016-11-11 11:04 | RADRPT ---
PROCEDURE: Lexiscan myocardial perfusion study CLINICAL INDICATION: 55 -year-old patient complaining of chest pain. TECHNIQUE: Lexiscan 0.4 mg intravenously separate acquisition gated myocardial perfusion SPECT usi ng Tc 99m Myoview approximately 30.0 mCi intravenously at stress and Tc-99m Myoview, approximately 1 0.0 mCi intravenously at rest was performed using the rest/stress sequence. Poststress Myoview SPEC T images were obtained in the supine position. COMPARISON: No prior studies. FINDINGS: Perfusion images reveal no evidence of perfusion defects. Lexiscan post stress gated SPECT images demonstrate mild hypokinesis of the left ventricle. IMPRESSION: 1. No evidence of perfusion defects. 2. Mild hypokinesis of the left ventricle a 3. The left ventricle ejection fraction at stress is 42%. RPTAT: HH .Lubna Rashid MD, Date Time Electronically viewed and signed by .Lubna Rashid MD, on 11/11/2016 11:03 .L/
[2016-11-11] MEDS: ASPIRIN (EC) 81 MG TAB PO SCH (11:06)
[2016-11-11] MEDS: RANOLAZINE (SR) 500 MG TAB PO SCH (11:06)
[2016-11-11] MEDS: AMLODIPINE 10 MG TAB PO SCH (11:06)
[2016-11-11] MEDS: POTASSIUM CHLORIDE (SR) 20 MEQ TAB PO SCH (11:07)
[2016-11-11] MEDS: TICAGRELOR 90 MG TABLET PO SCH (11:08)
[2016-11-11] MEDS: HEPARIN 5,000 UNIT/0.5 ML VIAL SC SCH (11:08)
[2016-11-11 11:20] LABS: ANISOCYTOSIS 2+; HYPOCHROMASIA 2+; LYMPHOCYTES # 0.8 10^3/ul (0.8-2.9); MICROCYTOSIS 1+; MONOCYTE # 0.3 10^3/ul (0.3-0.9); NEUTROPHIL # 2.4 10^3/ul (1.6-7.5)
--- NOTE | 2016-11-11 11:41 | PN ---
Date/Time of Note Date/Time of Note DATE: 11/11/16 TIME: 11:38 Assessment/Plan VTE Prophylaxis VTE Prophylaxis Intervention: heparin, other (on Briliinta ) Lines/Catheters IV Catheter Type (from Nrsg): Mid Line Assessment/Plan Assessment/Plan 1. Chest pain. Trop neg, ECHO showed Diastolic dysfunction stage I,S/p Lexiscan today- negative, EF 42% 2. History of CAD with CABG. Continue on statin and antiplatelet 3. History of tachybradycardia syndrome. Patient is status post ablation and pacemaker placement. Continue inpatient monitoring 4. History of Lljou-Nbahdcpmo-Jaulu syndrome. Continue with cardiology recommendations 5. WEN. improved at present. S/p Midline placement, Stress test done today- negative, EF 42%- if cleared with cardiology and nephrology, plan for d/c home today Subjective 24 Hr Interval Summary Free Text/Dictation s/p Midline placement, Plan for LExiscan today Exam/Review of Systems Vital Signs Vitals Vital Signs Date Time Temp Pulse Resp B/P Pulse Ox O2 Delivery O2 Flow Rate FiO2 11/11/16 11:11 98.0 80 20 108/60 94 Room Air 11/11/16 06:28 3.0 11/09/16 23:42 21 Intake and Output 11/10/16 11/10/16 11/11/16 15:00 23:00 07:00 Intake Total 1140 ml Output Total 2700 ml 1100 ml Balance -1560 ml -1100 ml Results Result Diagram: 11/11/16 0623 11/11/16 0623 Results 24 hrs Laboratory Tests Test 11/10/16 14:58 11/11/16 06:23 Anion Gap 15 15 Basophils # 0.0 Basophils % 0.0 Blood Morphology Comment Blood Urea Nitrogen 17 18 Calcium Level 9.6 8.6 Carbon Dioxide Level 27 26 Chloride Level 102 103 Creatinine 0.97 0.92 Eosinophils # 0.0 Eosinophils % 0.2 Glucose Level 89 79 Hematocrit 30.8 L 29.9 L Hemoglobin 10.1 L 9.9 L Lymphocytes # 0.5 L 0.8 Lymphocytes % 13.7 L 24.0 Mean Corpuscular Hemoglobin 26.1 L 26.6 L Mean Corpuscular Hemoglobin Concent 32.7 33.2 Mean Corpuscular Volume 79.8 L 80.3 L Mean Platelet Volume 7.9 7.9 Monocytes # 0.5 0.3 Monocytes % 14.1 H 8.0 Neutrophils # 2.7 2.4 Neutrophils % 72.0 68.0 Nucleated Red Blood Cells # 0.0 Nucleated Red Blood Cells % 0.0 Platelet Count 170 152 Potassium Level 4.3 4.8 Red Blood Count 3.86 L 3.72 L Red Cell Distribution Width 22.3 H 22.4 H Sodium Level 140 139 White Blood Count 3.7 L 3.5 L Anisocytosis 2+ Hypochromasia 2+ Microcytosis 1+ Medications Medications Current Medications Ondansetron HCl (Zofran Inj) 4 mg Q6H PRN IV NAUSEA AND/OR VOMITING; Start at 07:00 Nitroglycerin (Nitroglycerin (Sl Tab) 0.4 Mg) 1 tab Q5M PRN SL CHEST PAIN; Start 11/06/16 at 07:00 Acetaminophen (Tylenol Tab) 650 mg Q6H PRN PO PAIN LEVEL 1-3 OR FEVER; Start at 07:00 Heparin Sodium (Porcine) (Heparin (5000 Units/0.5 ml)) 5,000 unit Q12 SC Last administered on 11/11/16 11:08; Admin Dose 5,000 UNIT; Start 11/06/16 at 09:00 Amlodipine Besylate (Norvasc) 10 mg DAILY PO Last administered on 11/11/16 11: 06; Admin Dose 10 MG; Start 11/06/16 at 09:00 Aspirin (Halfprin) 81 mg DAILY PO Last administered on 11/11/16 11:06; Admin Dose 81 MG; Start 11/06/16 at 09:00 Atorvastatin Calcium (Lipitor) 20 mg HS PO Last administered on 11/10/16 20:44 ; Admin Dose 20 MG; Start 11/06/16 at 21:00 Carvedilol (Coreg) 25 mg BID PO Last administered on 11/11/16 11:06; Admin Dose 25 MG; Start 11/06/16 at 09:00 Diphenhydramine HCl (Benadryl) 50 mg TID PO Last administered on 11/11/16 11: 06; Admin Dose 50 MG; Start 11/06/16 at 09:00 Potassium Chloride (Klor-Con 20) 20 meq DAILY PO Last administered on 2/22/ 17at 11:07; Admin Dose 20 MEQ; Start 11/06/16 at 09:00 Ranolazine (Ranexa) 1,000 mg Q12 PO Last administered on 11/11/16 11:06; Admin Dose 1,000 MG; Start 11/06/16 at 09:00 Ticagrelor (Brilinta) 90 mg Q12 PO Last administered on 11/11/16 11:08; Admin Dose 90 MG; Start 11/06/16 at 09:00 Isosorbide Dinitrate (Isordil) 40 mg TID PO Last administered on 11/10/16 21: 06; Admin Dose 40 MG; Start 11/06/16 at 09:00 Acetaminophen/ Hydrocodone Bitart ([place] (10/325)) 1 tab Q6H PRN PO moderate pain; Start 11/06/16 at 22:00 Morphine Sulfate (morphine) 4 mg Q4H PRN IV severe pain Last administered on 09:05; Admin Dose 4 MG; Start 11/09/16 at 20:00 IV Flush (NS 10 ml) 10 ml PRN PRN IV IV PROTOCOL; Start 11/10/16 at 16:30 MALLY NORWOOD MD Nov 11, 2016 11:41
--- NOTE | 2016-11-11 21:37 | DS ---
DATE OF ADMISSION: 11/10/2016 DATE OF DISCHARGE: 11/11/2016 FINAL DISCHARGE DIAGNOSES: 1. Atypical chest pain. Stress test negative. 2. History of coronary artery disease, status post coronary artery bypass grafting. 3. Acute kidney injury secondary to prerenal azotemia. 4. History of tachybrady cardiac syndrome. 5. Status post pacemaker placement. 6. History of WPW syndrome. CONSULTATIONS DONE DURING THIS HOSPITALIZATION: 1. Cardiology consult, Michelle Gutierres MD. 2. Nephrology consult, Clayton Carty MD. HOSPITAL COURSE: This is a 55-year-old male with a past medical history of coronary artery disease, status post coronary artery syndrome, coronary artery bypass graft, history of a tachybrady syndrom e, status post pacemaker placement, history of WPW syndrome who presented with a complaint of chest pain. He gets admitted to the telemetry floor where he had serial troponins and EKG negative for an y acute coronary syndrome. He had a cardiology evaluation done by Dr. Michelle Gutierres and had a s tress test done. The patient required a PICC line placement prior to getting the stress test due to poor IV access. He also had acute kidney injury secondary to prerenal azotemia. His kidney functi on was normal at the time of the discharge. DISPOSITION: To home. DISCHARGE CONDITION: Stable and improved compared to admission. DISCHARGE ACTIVITIES: As tolerated, slowly resume to the normal baseline activity. DISCHARGE DIET: Low fat, low sodium cardiac diet. DISCHARGE MEDICATIONS: As per medical reconciliation. DISCHARGE FOLLOWUP AND INSTRUCTIONS: The patient is to follow up with his own primary care doctor, nephrology and cardiology as outpatient. Dictated By: MALLY NORWOOD MD, KP/KETURAH Conf#: [id number] DID#: [id number]
== END 2016-11-11 17:04 | disposition home or self-care (01) | DRG 313 ==
LOC: E/R 01:11 → MS4 04:39 → OBSVTOIN 11-10 14:26
PROVIDERS: ADMIT Internal Medicine; ATTEND Internal Medicine
PROC: C23GYZZ Positron Emission Tomographic (PET) Imaging of Myocardium using Other Radionuclide (ICD-10-PCS; principal; 2016-11-10)
PROC: 4A02XM4 Measurement of Cardiac Total Activity, External Approach (ICD-10-PCS; 2016-11-10)
PROC: 3E033HZ Introduction of Radioactive Substance into Peripheral Vein, Percutaneous Approach (ICD-10-PCS; 2016-11-10)
PROC: 02HV33Z Insertion of Infusion Device into Superior Vena Cava, Percutaneous Approach (ICD-10-PCS; 2016-11-10)
PROC: B548ZZA Ultrasonography of Superior Vena Cava, Guidance (ICD-10-PCS; 2016-11-10)
DX: R07.89 Other chest pain (principal); I25.2 Old myocardial infarction; N17.9 Acute kidney failure, unspecified; I25.10 Atherosclerotic heart disease of native coronary artery without angina pectoris; I08.2 Rheumatic disorders of both aortic and tricuspid valves; I45.6 Pre-excitation syndrome; D64.9 Anemia, unspecified; R06.00 Dyspnea, unspecified; Z95.1 Presence of aortocoronary bypass graft; Z86.79 Personal history of other diseases of the circulatory system; Z79.02 Long term (current) use of antithrombotics/antiplatelets; Z88.8 Allergy status to other drugs, medicaments and biological substances; Z79.82 Long term (current) use of aspirin; Z95.0 Presence of cardiac pacemaker
CPT/HCPCS: 36569; 71010; 76775; 76937; 78452; 80048; 81003; 82550; 82553; 82570; 84100; 84155; 84300; 84484; 85025; 85610; 85730; 93005; 93017; 93306; 96372; 96374; 96375; 96376; 99217; G0378; A9500; A9505; J1644; J2270; J2405; J2785; J7030

== ENCOUNTER 2017-07-16 19:59 | Inpatient (IN) | payer MEDICARE, OTHER ==
[~2017-07-16] VITALS: Ht 188 cm; Wt 93.0 kg
[~2017-07-16 19:59] MED LIST changes: -FURO-109 PO; -HYDROMORPHONE MC; +LAS20 PO; -NITR0.4T6 SL; -[UNRECOGNIZED DRUG - CODE] TD
[2017-07-16] MEDS ORDERED: ASPIRIN 325 MG TAB PO STA (20:42)
[2017-07-16] MEDS ORDERED: NITROGLYCERIN (SL) 0.4 MG TAB SL ONE (21:00)
[2017-07-16] MEDS ORDERED: AMLO-147 PO (21:52)
[2017-07-16] MEDS ORDERED: FURO40TA4 PO (21:52)
[2017-07-16] MEDS ORDERED: ASPI-781 PO (21:53)
[2017-07-16] MEDS ORDERED: HYDR0.5S2 PO (21:57)
[2017-07-16] MEDS ORDERED: [UNRECOGNIZED DRUG - CODE] TD (22:12)
--- NOTE | 2017-07-16 22:13 | RADRPT ---
PROCEDURE: XR Chest. CLINICAL INDICATION: Chest. TECHNIQUE: Single frontal chest x-ray. COMPARISON: 11/06/2016 FINDINGS: The patient status post sternotomy. There is unchanged electronic medical certification specialist the control nodule in the right lateral lower chest leads overlying the heart. Heart is normal in size.. There is no c ongestive heart failure.. There is left basilar atelectasis versus scarring. Minimal right basilar a telectasis versus scarring. There is no pleural effusion. There is no pneumothorax. The osseous s tructures are unremarkable. IMPRESSION: No significant change. Bibasilar atelectasis versus scarring. RPTAT: HMVK .Curt Valentin MD, MD Date Time Electronically viewed and signed by .Curt Valentin MD, on 07/16/2017 22:12 .K/
--- NOTE | 2017-07-16 22:13 | RADRPT ---
PROCEDURE: XR Chest. CLINICAL INDICATION: Chest. TECHNIQUE: Single frontal chest x-ray. COMPARISON: 11/06/2016 FINDINGS: The patient status post sternotomy. There is unchanged electronic remote medical coder the control nodule in the right lateral lower chest leads overlying the heart. Heart is normal in size.. There is no c ongestive heart failure.. There is left basilar atelectasis versus scarring. Minimal right basilar a telectasis versus scarring. There is no pleural effusion. There is no pneumothorax. The osseous s tructures are unremarkable. IMPRESSION: No significant change. Bibasilar atelectasis versus scarring. RPTAT: HMVK .Curt Valentin MD, MD Date Time Electronically viewed and signed by .Curt Valentin MD, on 07/16/2017 22:12 .K/
--- NOTE | 2017-07-16 22:13 | RADRPT ---
PROCEDURE: XR Chest. CLINICAL INDICATION: Chest. TECHNIQUE: Single frontal chest x-ray. COMPARISON: 11/06/2016 FINDINGS: The patient status post sternotomy. There is unchanged electronic medical chief technician the control nodule in the right lateral lower chest leads overlying the heart. Heart is normal in size.. There is no c ongestive heart failure.. There is left basilar atelectasis versus scarring. Minimal right basilar a telectasis versus scarring. There is no pleural effusion. There is no pneumothorax. The osseous s tructures are unremarkable. IMPRESSION: No significant change. Bibasilar atelectasis versus scarring. RPTAT: [facility]VK .Curt Valentin MD, MD Date Time Electronically viewed and signed by .Curt Valentin MD, on 07/16/2017 22:12 .K/
[2017-07-16] MEDS ORDERED: morphine 4 MG/ML VIAL IV ONE (22:47)
[2017-07-16] MEDS ORDERED: ONDANSETRON 4 MG INJ IV PRN (23:00)
[2017-07-17] VITALS (15 sets, daily range): BP systolic 80–136; BP diastolic 49–77; PULSE 69–78; RESP 18–20; TEMP 98.3; Ht 188 cm; Wt 93.0 kg
--- NOTE | 2017-07-17 00:02 | ERD ---
ER Documentation Chief Complaint Chief Complaint chest pain since 40 minutes ago, sob, took 3 nitro, pain subsided HPI 56-year-old male presents with severe left-sided pressure-like chest pain that began a half hour ago. Also had significant shortness of breath with the sudden onset of chest pain. Took nitroglycerin prior to arrival which helped with the chest pain that has now returned. Denies nausea or vomiting. Denies radiation. ROS All systems reviewed and are negative except as per history of present illness. Medications Home Meds Active Scripts Isosorbide Dinitrate* (Isordil*) 40 Mg Tablet, 40 MG PO TID for 30 Days, TAB Prov:LYDIA BENNETT 11/08/16 Carvedilol* (Carvedilol*) 25 Mg Tablet, 25 MG PO BID for 30 Days, TAB Prov:LYDIA BENNETT 11/08/16 Reported Medications Nitroglycerin* (Nitro-Dur* Patch) Unknown Strength Patch, 1 PATCH TD DAILY, PATCH 07/16/17 Hydromorphone HCl/Pf (Dilaudid) 0.5 Mg/0.5 Ml Syringe, 0.5 MG PO NEEDED Y for PAIN 07/16/17 Aspirin* (Ecotrin*) 325 Mg Tablet.dr, 325 MG PO DAILY, TAB 07/16/17 Furosemide* (Furosemide*) 40 Mg Tablet, 40 MG PO BID, TAB 07/16/17 Amlodipine Besylate* (Amlodipine Besylate*) 10 Mg Tablet, 10 MG PO BID, #30 TAB 07/16/17 Potassium Chloride* (Potassium Chloride*) 20 Meq Tablet.er, 20 MEQ PO DAILY, TAB.SA 09/11/14 Discontinued Reported Medications Diphenhydramine Hcl* (Benadryl*) 50 Mg Cap, 50 MG PO TID for ITCHING, CAP 09/11/14 Discontinued Scripts Furosemide (Lasix) 20 Mg Tab, 20 MG PO BID DIURETICS for 30 Days, TAB Prov:LYDIA BENNETT 11/08/16 Amlodipine Besylate* (Norvasc*) 10 Mg Tab, 10 MG PO DAILY, #30 TAB Prov:LYDIA BENNETT 11/08/16 Ticagrelor* (Brilinta*) 90 Mg Tablet, 90 MG PO Q12 for 30 Days, TAB Prov:LYDIA BENNETT 11/08/16 Ranolazine* (Ranexa*) 1,000 Mg Tab.sr.12h, 1000 MG PO Q12 for 30 Days, TAB Prov:LYDIA BENNETT 11/08/16 Atorvastatin Calcium* (Atorvastatin Calcium*) 20 Mg Tablet, 20 MG PO HS for 30 Days, TAB Prov:REGIDOLYDIA Villaseñor 11/08/16 Aspirin* (Aspirin* EC) 81 Mg Tabec, 81 MG PO DAILY, #30 Prov:ANNA PIERRE 01/21/16 Allergies Allergies: Coded Allergies: atropine (Unverified Allergy, Unknown, 07/16/17) metoclopramide (Unverified Allergy, Unknown, 07/16/17) prochlorperazine (Unverified Allergy, Unknown, 07/16/17) PMhx/Soc Anesthesia Reaction: No Hx Neurological Disorder: No Hx Respiratory Disorders: Yes (PNA) Hx Cardiac Disorders: Yes (CAD, WPW, SVT, V-tach, tachybrady syndrome, DE, blation and AICD placement) Hx Psychiatric Problems: No Hx Miscellaneous Medical Probl: No Hx Alcohol Use: No Hx Substance Use: No Hx Tobacco Use: No Smoking Status: Never smoker Physical Exam Vitals Vital Signs Date Time Temp Pulse Resp B/P Pulse Ox O2 Delivery O2 Flow Rate FiO2 07/16/17 21:00 Nasal Cannula 2 07/16/17 20:10 98.3 82 20 181/90 100 Physical Exam Const: [] Head: Atraumatic Eyes: Normal Conjunctiva ENT: Normal External Ears, Nose and Mouth. Neck: Full range of motion..~ No meningismus. Resp: Clear to auscultation bilaterally Cardio: Regular rate and rhythm, no murmurs Abd: Soft, non tender, non distended. Normal bowel sounds Skin: No petechiae or rashes Back: No midline or flank tenderness Ext: No cyanosis, or edema Neur: Awake and alert Psych: Normal Mood and Affect Result Diagram: 07/16/17211407/16/172114 Results 24 hrs Laboratory Tests Test 07/16/17 21:15 White Blood Count 5.610^3/ul Red Blood Count 3.8310^6/ul Hemoglobin 10.8g/dl Hematocrit 35.1% Mean Corpuscular Volume 91.6fl Mean Corpuscular Hemoglobin 28.2pg Mean Corpuscular Hemoglobin Concent 30.8g/dl Red Cell Distribution Width 18.8% Platelet Count 39338^3/UL Mean Platelet Volume 9.7fl Neutrophils % 76.3% Lymphocytes % 12.4% Monocytes % 10.6% Eosinophils % 0.0% Basophils % 0.5% Nucleated Red Blood Cells % 0.0/100WBC Neutrophils # 4.210^3/ul Lymphocytes # 0.710^3/ul Monocytes # 0.610^3/ul Eosinophils # 0.010^3/ul Basophils # 0.010^3/ul Nucleated Red Blood Cells # 0.010^3/ul Sodium Level 140mmol/L Potassium Level 4.0mmol/L Chloride Level 103mmol/L Carbon Dioxide Level 26mmol/L Anion Gap 15 Blood Urea Nitrogen 25mg/dl Creatinine 1.14mg/dl Glucose Level 79mg/dl Calcium Level 9.0mg/dl Troponin I 0.023ng/ml B-Type Natriuretic Peptide 555PG/ML Lipase 77U/L Current Medications Medications (Trade) Dose Ordered Sig/Nora Route PRN Reason Start Time Stop Time Status Last Admin Dose Admin Aspirin (Aspirin) 325 mg ONCE STAT PO 07/16/17 20:42 07/16/17 20:48 DC 07/16/17 21:31 Nitroglycerin (Nitroglycerin (Sl Tab) 0.4 Mg) 1 tab ONCE ONCE SL 07/16/17 21:00 07/16/17 21:01 DC 07/16/17 21:31 Morphine Sulfate (morphine) 4 mg ONCE ONCE IV 07/16/17 22:47 07/16/17 22:48 DC 07/16/17 22:58 Ondansetron HCl (Zofran Inj) 4 mg ONCE PRN IV NAUSEA 07/16/17 23:00 Procedures/MDM Patient is significant distress multiple risk factors with a good story for possible acute coronary syndrome, initial troponin not significantly elevated, difficult to evaluate for ischemia and paced EKG. Patient continued of chest pain and this was improved with morphine. She will be admitted to telemetry for further monitoring. Troponins will be trended. Dr. Soto will be admitting. EKG interpretation: Paced rhythm rate of 78, chamber pacemaker, beyond that no signs of acute cardiac ischemia though interpretation is difficult with paced rhythm. Monitor interpretation: Paced rhythm without tachycardia or other arrhythmia. Chest x-ray interpretation: See no acute process, no pulmonary edema, no wide mediastinum, pneumothorax, no infiltrates, no fractures per Departure Diagnosis: Primary Impression: Chest pain Additional Impression: Normocytic anemia Condition: MARLYN Tripp DO Jul 17, 2017 00:02
[2017-07-17] MEDS ORDERED: ACETAMINOPHEN 325 MG TAB PO PRN ×2 (01:00→02:30)
[2017-07-17] MEDS ORDERED: ONDANSETRON 4 MG INJ IV PRN ×2 (01:00→02:30)
[2017-07-17] MEDS ORDERED: HYDROCODONE/APAP (5/325) TAB PO ONE (01:00)
[2017-07-17] MEDS ORDERED: ALBUTEROL/IPRATROPIUM (NEB) 3 ML AMP HHN PRN (02:30)
[2017-07-17] MEDS ORDERED: NACL 0.9% 3 ML SYG IV SCH (02:30)
[2017-07-17] MEDS ORDERED: NITROGLYCERIN (SL) 0.4 MG TAB SL PRN (02:30)
[2017-07-17] MEDS: morphine 2 MG INJ IV PRN ×4 (03:08→18:51)
--- NOTE | 2017-07-17 07:14 | HP ---
Date/Time of Note Date/Time of Note DATE: 07/17/17 TIME: 07:09 Assessment/Plan VTE Prophylaxis VTE Prophylaxis Intervention: heparin Lines/Catheters IV [facility] Urinary Cath still in place: No Assessment/Plan Assessment/Plan ASSESSMENT 1. Chest pain, need to rule out acute coronary syndrome. 2. History of coronary artery disease with history of coronary artery bypass graft with coronary artery bypass graft. 3. History of tachybrady syndrome, status post ablation and pacemaker placement 4. History of Reyye-Zhlwgcjue-Txlyl syndrome 5. History of PR in December of last year. 6. History of supraventricular tachycardia and ventricular tachycardia. PLAN Admit to telemetry unit. send additional troponins. cardiology consult. He will be continued with his home medications which include a beta genet, aspirin, nitro, and diuretic. Add statin He will also be placed on oxygen and will provide as needed morphine and sublingual nitro. Check A1c and fasting lipid in a.m. Further workup and management will be per clinical course. For DVT prophylaxis, subcutaneous heparin. HPI/ROS Admit Date/Time Admit Date/Time Jul 17, 2017 at 00:58 Hx of Present Illness The patient is a 55-year-old male with a history of coronary artery disease with CABG, WPW, SVT, V-tach, and tachybrady syndrome status post ablation and pacemaker placement (has been changed 10 times since age of 21 when first placed ) and history of myocardial infarction who presented to the emergency department complaining of chest pain. He said the pain started while sitting, it substernal with radiation to the left arm. He also complains of shortness of breath. The pain started an hour prior to arrival to the ER. He took 3 sublingual nitroglycerin without relief of his pain. When he presented to the ER, vitals were stable. EKG was no ST-T wave abnormality. First troponin is negative, but CK-MB 4.18 (0-2.4). Chest x-ray showed bibasilar atelectasis versus scarring. . PMH/Family/Social Past Surgical History Past Surgical Hx: angioplasty, other Social History Smoking Status: Unknown if ever smoked Exam/Review of Systems Vital Signs Vitals Vital Signs Date Time Temp Pulse Resp B/P Pulse Ox O2 Delivery O2 Flow Rate FiO2 07/17/17 04:20 70 07/17/17 04:13 97.6 18 135/65 97 07/17/17 02:30 Nasal Cannula 2.0 Intake and Output 07/16/17 07/16/17 07/17/17 15:00 23:00 07:00 Intake Total 240 ml Output Total 300 ml Balance -60 ml Exam Constitutional: alert, oriented, well developed Head: atraumatic, normocephalic Eyes: EOMI, PERRL Respiratory: clear to auscultation, normal air movement Cardiovascular: nl pulses, regular rate and rhythm Gastrointestinal: non-tender, soft Extremities: normal pulses Labs Result Diagram: 07/17/1730907/17/17 031 Medications Medications Current Medications Ondansetron HCl (Zofran Inj) 4 mg ONCE PRN IV NAUSEA; Start 07/16/17 at 23:00 Ondansetron HCl (Zofran Inj) 4 mg Q6H PRN IV NAUSEA AND/OR VOMITING; Start at 02:30 Nitroglycerin (Nitroglycerin (Sl Tab) 0.4 Mg) 1 tab Q5M PRN SL CHEST PAIN; Start 07/17/17 at 02:30 Acetaminophen (Tylenol Tab) 650 mg Q6H PRN PO PAIN LEVEL 1-3 OR FEVER; Start 07/17/17 at 02:30 Morphine Sulfate (morphine) 2 mg Q4H PRN IV PAIN LEVEL 7-10 Last administered on 07/17/17t 03:08; Admin Dose 2 MG; Start 07/17/17 at 02:30 Heparin Sodium (Porcine) (Heparin (5000 Units/0.5 ml)) 5,000 unit Q12 SC ; Start 07/17/17 at 09:00 Amlodipine Besylate (Norvasc) 10 mg BID PO ; Start 07/17/17 at 09:00 Aspirin (Ecotrin) 325 mg DAILY PO ; Start 07/17/17 at 09:00 Carvedilol (Coreg) 25 mg BID PO ; Start 07/17/17 at 09:00 Potassium Chloride (Klor-Con 20) 20 meq DAILY PO ; Start 07/17/17 at 09:00 Miscellaneous Information 40 mg TID PO ; Start 07/17/17 at 09:00; Status UNLINNEA FARRELL MD Jul 17, 2017 07:14
[2017-07-17] MEDS: FUROSEMIDE 40 MG TAB PO SCH ×2 (08:23→18:51)
[2017-07-17] MEDS: ASPIRIN (EC) 325 MG TAB PO SCH (08:23)
[2017-07-17] MEDS: POTASSIUM CHLORIDE (SR) 20 MEQ TAB PO SCH (08:24)
[2017-07-17] MEDS: AMLODIPINE 10 MG TAB PO SCH ×2 (08:24→21:00)
[2017-07-17] MEDS: HEPARIN 5,000 UNIT/0.5 ML VIAL SC SCH ×2 (08:38→22:04)
[2017-07-17] MEDS: ISOSORBIDE DINITRATE 20 MG TAB PO SCH ×3 (09:00→21:00)
--- NOTE | 2017-07-17 12:26 | PN ---
Date/Time of Note Date/Time of Note DATE: 07/17/17 TIME: 12:22 Assessment/Plan VTE Prophylaxis VTE Prophylaxis Intervention: heparin Lines/Catheters IV [facility]from [facility] Urinary Cath still in place: No Assessment/Plan Chief Complaint/Hosp Course Assessment/Plan: 56 M with: 1. Chest pain, need to rule out acute coronary syndrome. 2. History of coronary artery disease with history of coronary artery bypass graft with coronary artery bypass graft. 3. History of tachybrady syndrome, status post ablation and pacemaker placement 4. History of Tsqhc-Faknjhlkh-Qxajs syndrome 5. History of OH in December of last year. 6. History of supraventricular tachycardia and ventricular tachycardia. PLAN Admit to telemetry unit. send additional troponins. Follow-up cardiology consult. He will be continued with his home medications which include a beta genet, aspirin, nitro, and diuretic, and added statin Continue oxygen and will provide as needed morphine and sublingual nitro. Check follow-up A1c and fasting lipid in a.m. Further workup and management will be per clinical course. For DVT prophylaxis, subcutaneous heparin. Problems: Subjective 24 Hr Interval Summary Free Text/Dictation No acute events overnight, still waiting to be seen by cardiology team. Exam/Review of Systems Vital Signs Vitals Vital Signs Date Time Temp Pulse Resp B/P Pulse Ox O2 Delivery O2 Flow Rate FiO2 07/17/17 12:20 69 07/17/17 11:47 98.2 20 95/55 96 07/17/17 02:30 Nasal Cannula 2.0 Intake and Output 07/16/17 07/16/17 07/17/17 15:00 23:00 07:00 Intake Total 240 ml Output Total 300 ml Balance -60 ml Exam Constitutional: alert, oriented, well developed Head: atraumatic, normocephalic Eyes: EOMI, PERRL Respiratory: clear to auscultation, normal air movement Cardiovascular: nl pulses, regular rate and rhythm Gastrointestinal: non-tender, soft Extremities: normal pulses Results Result Diagram: 07/17/1730907/17/17309 Results 24 hrs Laboratory Tests Test 07/16/17 21:15 07/17/17 03:10 07/17/17 09:22 White Blood Count 5.6 # 5.1 Red Blood Count 3.83 L 3.99 L Hemoglobin 10.8 L 11.4 L Hematocrit 35.1 L 36.5 L Mean Corpuscular Volume 91.6 91.5 Mean Corpuscular Hemoglobin 28.2 L 28.6 L Mean Corpuscular Hemoglobin Concent 30.8 L 31.2 L Red Cell Distribution Width 18.8 H 18.6 H Platelet Count 131 L 116 L Mean Platelet Volume 9.7 # 9.4 Neutrophils % 76.3 69.3 Lymphocytes % 12.4 L 18.8 Monocytes % 10.6 10.9 Eosinophils % 0.0 0.0 Basophils % 0.5 0.6 Nucleated Red Blood Cells % 0.0 0.0 Neutrophils # 4.2 3.5 Lymphocytes # 0.7 L 1.0 Monocytes # 0.6 0.6 Eosinophils # 0.0 0.0 Basophils # 0.0 0.0 Nucleated Red Blood Cells # 0.0 0.0 Sodium Level 140 143 Potassium Level 4.0 4.2 Chloride Level 103 106 Carbon Dioxide Level 26 29 Anion Gap 15 12 Blood Urea Nitrogen 25 H 23 H Creatinine 1.14 0.92 Glucose Level 79 83 Calcium Level 9.0 9.4 Troponin I 0.023 0.035 0.026 B-Type Natriuretic Peptide 555 H Lipase 77 Hemoglobin A1c 4.9 Magnesium Level 1.9 Total Bilirubin 0.5 Direct Bilirubin 0.00 Indirect Bilirubin 0.5 Aspartate Amino Transf (AST/SGOT) 34 Alanine Aminotransferase (ALT/SGPT) 31 Alkaline Phosphatase 149 H Creatine Kinase 207 H 161 Creatine Kinase Index 2.0 2.2 Creatinine Kinase MB (Mass) 4.18 H 3.59 H Total Protein 7.0 Albumin 3.8 Globulin 3.20 Albumin/Globulin Ratio 1.18 Triglycerides Level 49 Cholesterol Level 140 LDL Cholesterol, Calculated 70 HDL Cholesterol 60 Cholesterol/HDL Ratio 2.3 Medications Medications Current Medications Ondansetron HCl (Zofran Inj) 4 mg ONCE PRN IV NAUSEA; Start 07/16/17 at 23:00 Ondansetron HCl (Zofran Inj) 4 mg Q6H PRN IV NAUSEA AND/OR VOMITING; Start at 02:30 Nitroglycerin (Nitroglycerin (Sl Tab) 0.4 Mg) 1 tab Q5M PRN SL CHEST PAIN; Start 07/17/17 at 02:30 Acetaminophen (Tylenol Tab) 650 mg Q6H PRN PO PAIN LEVEL 1-3 OR FEVER; Start 07/17/17 at 02:30 Morphine Sulfate (morphine) 2 mg Q4H PRN IV PAIN LEVEL 7-10 Last administered on 07/17/17 08:25; Admin Dose 2 MG; Start 07/17/17 at 02:30 Heparin Sodium (Porcine) (Heparin (5000 Units/0.5 ml)) 5,000 unit Q12 SC Last administered on 07/17/17 08:38; Admin Dose 5,000 UNIT; Start 07/17/17 at 09: 00 Amlodipine Besylate (Norvasc) 10 mg BID PO Last administered on 07/17/17 08: 24; Admin Dose 10 MG; Start 07/17/17 at 09:00 Aspirin (Ecotrin) 325 mg DAILY PO Last administered on 07/17/17 08:23; Admin Dose 325 MG; Start 07/17/17 at 09:00 Carvedilol (Coreg) 25 mg BID PO Last administered on 07/17/17 08:24; Admin Dose 25 MG; Start 07/17/17 at 09:00 Potassium Chloride (Klor-Con 20) 20 meq DAILY PO Last administered on 08:24; Admin Dose 20 MEQ; Start 07/17/17 at 09:00 Isosorbide Dinitrate (Isordil) 40 mg TID PO ; Start 07/17/17 at 09:00 Atorvastatin Calcium (Lipitor) 20 mg HS PO ; Start 07/17/17 at 21:00 AMENA GUAJARDO Jul 17, 2017 12:26
--- NOTE | 2017-07-17 17:31 | CONS ---
Date/Time of Note Date/Time of Note DATE: 07/17/17 TIME: 17:17 Assessment/Plan Assessment/Plan Chief Complaint/Hosp Course Assessment: Chest pain - ruled out for myocardial infarction, mildly elevated CK-MB appears to be chronic from prior hospitalization Shortness of breath - likely related to tricuspid regurgitation Severe tricuspid regurgitation - likely from multiple prior ICD leads which were exacted during surgery, may need annuloplasty/repair Coronary artery disease, status post coronary artery bypass graft surgery History of ischemic cardiomyopathy - LVEF normalized to 55% on echocardiogram in October 2016 ICD implantation (with epicardial leads) Tuaky-Zkuskovxp-Pibxn syndrome, status post ablation Recommendations: -repeat transthoracic echocardiogram to evaluate left ventricular function and valvular disease -Lexiscan SPECT 11/10/2016 negative - will not repeat coronary evaluation at this time -continue outpatient cardiac medications - aspirin, amlodipine, carvedilol, Isordil, Lasix Problems: Consultation Date/Type/Reason Admit Date/Time Jul 17, 2017 at 00:58 Type of Consultation: Cardiology Reason for Consultation chest pain Hx of Present Illness The patient is a 56 year-old male who presented with chest pain. He describes onset of substernal chest pressure with radiation to his left arm while seated in a car. He took several nitroglycerin tablets with improvement, but incomplete relief of his symptoms. He also notes chronic shortness of breath, which has been worsening for the past month. His chest pain has since resolved since admission. EKG showed a ventricular paced rhythm. Troponins have been negative x 3. CK-MB mildly elevated up to 4.18. He has had numerous prior hospitalizations for chest pain. During his last hospitalization here at [facility] in 2016, he had Lexiscan SPECT which was negative for perfusion defects. 14 point review of systems negative other than per HPI. Past Medical History Coronary artery disease, status post coronary artery bypass graft surgery History of ischemic cardiomyopathy ICD implantation (with epicardial leads) Lvtyg-Hoolxdzpq-Gnotd syndrome, status post ablation Past Surgical History Past Surgical Hx: other Family History Significant Family History: no pertinent family hx Social History Smoking Status: Never smoker Exam/Review of Systems Vital Signs Vitals Vital Signs Date Time Temp Pulse Resp B/P Pulse Ox O2 Delivery O2 Flow Rate FiO2 07/17/17 16:18 69 07/17/17 16:04 91/55 07/17/17 15:30 98.0 20 92 07/17/17 02:30 Nasal Cannula 2.0 Intake and Output 07/16/17 07/16/17 07/17/17 15:00 23:00 07:00 Intake Total 240 ml Output Total 300 ml Balance -60 ml Exam Constitutional: alert, well developed Psych: nl mood/affect, no complaints Head: atraumatic, normocephalic Eyes: nl conjunctiva, nl lids ENMT: nl external ears & nose, nl nasal mucosa & septum Neck: non-tender, supple, No jvd Respiratory: clear to auscultation, normal air movement Cardiovascular: regular rate and rhythm, systolic murmur Gastrointestinal: non-tender, soft Musculoskeletal: nl extremities to inspection Extremities: No clubbing, No cyanosis, No edema Neurological: nl mental status, nl speech Skin: nl turgor Results Result Diagram: 07/17/1730907/17/17309 Results 24 hrs Laboratory Tests Test 07/16/17 21:15 07/17/17 03:10 07/17/17 09:22 White Blood Count 5.6 # 5.1 Red Blood Count 3.83 L 3.99 L Hemoglobin 10.8 L 11.4 L Hematocrit 35.1 L 36.5 L Mean Corpuscular Volume 91.6 91.5 Mean Corpuscular Hemoglobin 28.2 L 28.6 L Mean Corpuscular Hemoglobin Concent 30.8 L 31.2 L Red Cell Distribution Width 18.8 H 18.6 H Platelet Count 131 L 116 L Mean Platelet Volume 9.7 # 9.4 Neutrophils % 76.3 69.3 Lymphocytes % 12.4 L 18.8 Monocytes % 10.6 10.9 Eosinophils % 0.0 0.0 Basophils % 0.5 0.6 Nucleated Red Blood Cells % 0.0 0.0 Neutrophils # 4.2 3.5 Lymphocytes # 0.7 L 1.0 Monocytes # 0.6 0.6 Eosinophils # 0.0 0.0 Basophils # 0.0 0.0 Nucleated Red Blood Cells # 0.0 0.0 Sodium Level 140 143 Potassium Level 4.0 4.2 Chloride Level 103 106 Carbon Dioxide Level 26 29 Anion Gap 15 12 Blood Urea Nitrogen 25 H 23 H Creatinine 1.14 0.92 Glucose Level 79 83 Calcium Level 9.0 9.4 Troponin I 0.023 0.035 0.026 B-Type Natriuretic Peptide 555 H Lipase 77 Hemoglobin A1c 4.9 Magnesium Level 1.9 Total Bilirubin 0.5 Direct Bilirubin 0.00 Indirect Bilirubin 0.5 Aspartate Amino Transf (AST/SGOT) 34 Alanine Aminotransferase (ALT/SGPT) 31 Alkaline Phosphatase 149 H Creatine Kinase 207 H 161 Creatine Kinase Index 2.0 2.2 Creatinine Kinase MB (Mass) 4.18 H 3.59 H Total Protein 7.0 Albumin 3.8 Globulin 3.20 Albumin/Globulin Ratio 1.18 Triglycerides Level 49 Cholesterol Level 140 LDL Cholesterol, Calculated 70 HDL Cholesterol 60 Cholesterol/HDL Ratio 2.3 Medications Medications Current Medications Ondansetron HCl (Zofran Inj) 4 mg ONCE PRN IV NAUSEA; Start 07/16/17 at 23:00 Ondansetron HCl (Zofran Inj) 4 mg Q6H PRN IV NAUSEA AND/OR VOMITING; Start at 02:30 Nitroglycerin (Nitroglycerin (Sl Tab) 0.4 Mg) 1 tab Q5M PRN SL CHEST PAIN; Start 07/17/17 at 02:30 Acetaminophen (Tylenol Tab) 650 mg Q6H PRN PO PAIN LEVEL 1-3 OR FEVER; Start 07/17/17 at 02:30 Morphine Sulfate (morphine) 2 mg Q4H PRN IV PAIN LEVEL 7-10 Last administered on 07/17/17 13:16; Admin Dose 2 MG; Start 07/17/17 at 02:30 Heparin Sodium (Porcine) (Heparin (5000 Units/0.5 ml)) 5,000 unit Q12 SC Last administered on 07/17/17 08:38; Admin Dose 5,000 UNIT; Start 07/17/17 at 09: 00 Amlodipine Besylate (Norvasc) 10 mg BID PO Last administered on 07/17/17 08: 24; Admin Dose 10 MG; Start 07/17/17 at 09:00 Aspirin (Ecotrin) 325 mg DAILY PO Last administered on 07/17/17 08:23; Admin Dose 325 MG; Start 07/17/17 at 09:00 Carvedilol (Coreg) 25 mg BID PO Last administered on 07/17/17 08:24; Admin Dose 25 MG; Start 07/17/17 at 09:00 Potassium Chloride (Klor-Con 20) 20 meq DAILY PO Last administered on 08:24; Admin Dose 20 MEQ; Start 07/17/17 at 09:00 Isosorbide Dinitrate (Isordil) 40 mg TID PO ; Start 07/17/17 at 09:00 Atorvastatin Calcium (Lipitor) 20 mg HS PO ; Start 07/17/17 at 21:00 KENDRA MCKAY MD Jul 17, 2017 17:27
[2017-07-17] MEDS: ATORVASTATIN 20 MG TAB PO SCH (21:56)
[2017-07-18] VITALS (10 sets, daily range): BP systolic 97–118; BP diastolic 54–66; PULSE 69–75; RESP 16–20
[2017-07-18] MEDS: morphine 2 MG INJ IV PRN ×3 (02:08→21:11)
[2017-07-18] MEDS: FUROSEMIDE 40 MG TAB PO SCH ×2 (06:08→18:16)
[2017-07-18] MEDS: ASPIRIN (EC) 325 MG TAB PO SCH (09:00)
[2017-07-18] MEDS: AMLODIPINE 10 MG TAB PO SCH ×2 (09:00→20:48)
[2017-07-18] MEDS: HEPARIN 5,000 UNIT/0.5 ML VIAL SC SCH ×2 (09:00→20:57)
[2017-07-18] MEDS: POTASSIUM CHLORIDE (SR) 20 MEQ TAB PO SCH (09:00)
[2017-07-18] MEDS: ISOSORBIDE DINITRATE 20 MG TAB PO SCH ×3 (09:00→20:49)
[2017-07-18] MEDS ORDERED: SOD CHLORIDE 0.9% 250 ML IV ONE (12:40)
--- NOTE | 2017-07-18 13:22 | PDOCDIS ---
Discharge Instructions CONDITION Patient Condition: Stable HOME CARE INSTRUCTIONS: Diet Instructions: Low Fat /Cholesterol ACTIVITY: Activity Restrictions: Slowly Increase Activity FOLLOW UP/APPOINTMENTS Follow-up Plan Please take your medications as prescribed. Please follow-up with her regular doctor in the clinic in the next 1 week. AMENA GUAJARDO Jul 18, 2017 13:22
--- NOTE | 2017-07-18 13:26 | DS ---
Date/Time of Note Date/Time of Note DATE: 07/18/17 TIME: 13:24 Discharge Summary Admission/Discharge Info Admit Date/Time Jul 17, 2017 at 00:58 Discharge Date/Time Discharge Diagnosis Chest pain - ruled out for myocardial infarction, mildly elevated CK-MB appears to be chronic from prior hospitalization Shortness of breath - likely related to tricuspid regurgitation Severe tricuspid regurgitation - likely from multiple prior ICD leads which were exacted during surgery, may need annuloplasty/repair Coronary artery disease, status post coronary artery bypass graft surgery History of ischemic cardiomyopathy - LVEF normalized to 55% on echocardiogram in October 2016 ICD implantation (with epicardial leads) Kohnu-Txdbnhaqf-Xwnoh syndrome, status post ablation History of MS in December of last year. History of supraventricular tachycardia and ventricular tachycardia. Patient Condition: Stable Hospital Course 55-year-old male with a history of coronary artery disease with CABG, WPW, SVT, V-tach, and tachybrady syndrome status post ablation and pacemaker placement ( has been changed 10 times since age of 21 when first placed) and history of myocardial infarction who presented to the emergency department complaining of chest pain. He said the pain started while sitting, it substernal with radiation to the left arm. He also complains of shortness of breath. The pain started an hour prior to arrival to the ER. He took 3 sublingual nitroglycerin without relief of his pain. When he presented to the ER, vitals were stable. EKG was no ST-T wave abnormality. First troponin is negative, but CK-MB 4.18 (0 -2.4). Chest x-ray showed bibasilar atelectasis versus scarring. He was admitted to telemetry floor, seen by cardiology team as well. He ruled out for acute coronary syndrome. Over the course of his hospital stay chest pain symptoms improved, he had some's slightly low blood pressure symptoms that resolved by the time of discharge. He was able to ambulate and tolerated p.o. diet. His echocardiogram was also performed and results are still pending by the time of this discharge, and if he is cleared by cardiology team he will be discharged home later today in improved condition; see below for full list of discharge medications. Home Meds Active Scripts Isosorbide Dinitrate* (Isordil*) 40 Mg Tablet, 40 MG PO TID for 30 Days, TAB Prov:LYDIA BENNETT 11/08/16 Carvedilol* (Carvedilol*) 25 Mg Tablet, 25 MG PO BID for 30 Days, TAB Prov:SHERMANSAMPSONEVELINLYDIA 11/08/16 Reported Medications Nitroglycerin* (Nitro-Dur* Patch) Unknown Strength Patch, 1 PATCH TD DAILY, PATCH 07/16/17 Hydromorphone HCl/Pf (Dilaudid) 0.5 Mg/0.5 Ml Syringe, 0.5 MG PO NEEDED Y for PAIN 07/16/17 Aspirin* (Ecotrin*) 325 Mg Tablet.dr, 325 MG PO DAILY, TAB 07/16/17 Furosemide* (Furosemide*) 40 Mg Tablet, 40 MG PO BID, TAB 07/16/17 Amlodipine Besylate* (Amlodipine Besylate*) 10 Mg Tablet, 10 MG PO BID, #30 TAB 07/16/17 Potassium Chloride* (Potassium Chloride*) 20 Meq Tablet.er, 20 MEQ PO DAILY, TAB.SA 09/11/14 Discontinued Reported Medications Diphenhydramine Hcl* (Benadryl*) 50 Mg Cap, 50 MG PO TID for ITCHING, CAP 09/11/14 Discontinued Scripts Furosemide (Lasix) 20 Mg Tab, 20 MG PO BID DIURETICS for 30 Days, TAB Prov:LYDIA BENNETT 11/08/16 Amlodipine Besylate* (Norvasc*) 10 Mg Tab, 10 MG PO DAILY, #30 TAB Prov:SABRINALYDIA 11/08/16 Ticagrelor* (Brilinta*) 90 Mg Tablet, 90 MG PO Q12 for 30 Days, TAB Prov:LYDIA BENNETT 11/08/16 Ranolazine* (Ranexa*) 1,000 Mg Tab.sr.12h, 1000 MG PO Q12 for 30 Days, TAB Prov:LYDIA BENNETT 11/08/16 Atorvastatin Calcium* (Atorvastatin Calcium*) 20 Mg Tablet, 20 MG PO HS for 30 Days, TAB Prov:LYDIA BENNETT 11/08/16 Aspirin* (Aspirin* EC) 81 Mg Tabec, 81 MG PO DAILY, #30 Prov:ANNA PIERRE 01/21/16 Follow-up Plan Please take your medications as prescribed. Please follow-up with her regular doctor in the clinic in the next 1 week. Primary Care Provider Not On Staff Doctor Time spent on discharge: > 30 minutes AMENA GUAJARDO Jul 18, 2017 13:26
--- NOTE | 2017-07-18 18:33 | CONS ---
Date/Time of Note Date/Time of Note DATE: 07/18/17 TIME: 18:31 Assessment/Plan Assessment/Plan Chief Complaint/Hosp Course Assessment: Chest pain - ruled out for myocardial infarction, mildly elevated CK-MB appears to be chronic from prior hospitalization Shortness of breath - likely related to tricuspid regurgitation Severe tricuspid regurgitation - likely from multiple prior ICD leads which were exacted during surgery, may need annuloplasty/repair Coronary artery disease, status post coronary artery bypass graft surgery History of ischemic cardiomyopathy - LVEF normalized to 55% on echocardiogram in October 2016 ICD implantation (with epicardial leads) Gnymq-Hjjettdxh-Zlufq syndrome, status post ablation Recommendations: -Lexiscan SPECT 11/10/2016 negative - will not repeat coronary evaluation at this time -continue outpatient cardiac medications - aspirin, amlodipine, carvedilol, Isordil, Lasix -stable for discharge from cardiac standpoint, 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 Still with dyspnea, mostly on exertion. Detailed Summary Additional Comments 14 point review of systems without changes. Exam/Review of Systems Vital Signs Vitals Vital Signs Date Time Temp Pulse Resp B/P Pulse Ox O2 Delivery O2 Flow Rate FiO2 07/18/17 16:40 98.1 83 20 118/59 99 07/17/17 02:30 Nasal Cannula 2.0 Intake and Output 07/17/17 07/17/17 07/18/17 15:00 23:00 07:00 Intake Total 1000 ml 1000 ml Output Total 4000 ml 2000 ml Balance -3000 ml -1000 ml Exam Constitutional: alert, well developed Psych: nl mood/affect, no complaints Head: atraumatic, normocephalic Eyes: nl conjunctiva, nl lids ENMT: nl external ears & nose, nl nasal mucosa & septum Neck: non-tender, supple, No jvd Respiratory: clear to auscultation, normal air movement Cardiovascular: regular rate and rhythm, systolic murmur Gastrointestinal: non-tender, soft Musculoskeletal: nl extremities to inspection Extremities: No clubbing, No cyanosis, No edema Neurological: nl mental status, nl speech Skin: nl turgor Results Result Diagram: 10/28/17 0310 10/28/17 0310 Medications Medications Current Medications Ondansetron HCl (Zofran Inj) 4 mg ONCE PRN IV NAUSEA; Start 07/16/17 at 23:00 Ondansetron HCl (Zofran Inj) 4 mg Q6H PRN IV NAUSEA AND/OR VOMITING; Start at 02:30 Nitroglycerin (Nitroglycerin (Sl Tab) 0.4 Mg) 1 tab Q5M PRN SL CHEST PAIN; Start 07/17/17 at 02:30 Acetaminophen (Tylenol Tab) 650 mg Q6H PRN PO PAIN LEVEL 1-3 OR FEVER; Start 07/17/17 at 02:30 Morphine Sulfate (morphine) 2 mg Q4H PRN IV PAIN LEVEL 7-10 Last administered on 07/18/17 16:09; Admin Dose 2 MG; Start 07/17/17 at 02:30 Heparin Sodium (Porcine) (Heparin (5000 Units/0.5 ml)) 5,000 unit Q12 SC Last administered on 07/18/17 09:00; Admin Dose 5,000 UNIT; Start 07/17/17 at 09: 00 Amlodipine Besylate (Norvasc) 10 mg BID PO Last administered on 07/17/17 08: 24; Admin Dose 10 MG; Start 07/17/17 at 09:00 Aspirin (Ecotrin) 325 mg DAILY PO Last administered on 07/18/17 09:00; Admin Dose 325 MG; Start 07/17/17 at 09:00 Carvedilol (Coreg) 25 mg BID PO Last administered on 07/17/17 08:24; Admin Dose 25 MG; Start 07/17/17 at 09:00 Potassium Chloride (Klor-Con 20) 20 meq DAILY PO Last administered on 09:00; Admin Dose 20 MEQ; Start 07/17/17 at 09:00 Isosorbide Dinitrate (Isordil) 40 mg TID PO ; Start 07/17/17 at 09:00 Atorvastatin Calcium (Lipitor) 20 mg HS PO Last administered on 07/17/17 21: 56; Admin Dose 20 MG; Start 07/17/17 at 21:00 KENDRA MCKAY MD Jul 18, 2017 18:33
[2017-07-18] MEDS: ATORVASTATIN 20 MG TAB PO SCH (20:47)
[2017-07-19] VITALS (9 sets, daily range): BP systolic 99–132; BP diastolic 54–86; PULSE 69–70; RESP 15–20
[2017-07-19] MEDS: morphine 2 MG INJ IV PRN ×3 (01:30→13:41)
[2017-07-19] MEDS: FUROSEMIDE 40 MG TAB PO SCH ×3 (06:00→18:00)
[2017-07-19] MEDS: HEPARIN 5,000 UNIT/0.5 ML VIAL SC SCH (09:00)
[2017-07-19] MEDS: ASPIRIN (EC) 325 MG TAB PO SCH ×2 (09:00→13:41)
[2017-07-19] MEDS: POTASSIUM CHLORIDE (SR) 20 MEQ TAB PO SCH ×2 (09:00→13:40)
[2017-07-19] MEDS: AMLODIPINE 10 MG TAB PO SCH (09:00)
[2017-07-19] MEDS: ISOSORBIDE DINITRATE 20 MG TAB PO SCH ×2 (09:00→13:41)
== END 2017-07-19 18:30 | disposition home or self-care (01) | DRG 313 ==
LOC: E/R 19:59 → MS4 07-17 00:58
PROVIDERS: ADMIT Internal Medicine; ATTEND Internal Medicine
DX: R07.9 Chest pain, unspecified (principal); I25.2 Old myocardial infarction; I36.1 Nonrheumatic tricuspid (valve) insufficiency; J98.11 Atelectasis; I25.10 Atherosclerotic heart disease of native coronary artery without angina pectoris; Z95.1 Presence of aortocoronary bypass graft; I25.5 Ischemic cardiomyopathy; Z95.810 Presence of automatic (implantable) cardiac defibrillator
CPT/HCPCS: 36415; 71010; 80048; 80053; 80061; 82550; 82553; 83036; 83690; 83735; 83880; 84484; 85025; 93005; 96374; J1644; J2270; J2405; J7040

== ENCOUNTER 2018-01-07 11:23 | Inpatient (IN) | END 2018-01-12 19:45 | disposition home or self-care (01) | DRG 313 ==

== ENCOUNTER 2018-06-12 03:53 | Inpatient (IN) | END 2018-06-16 17:46 | disposition home or self-care (01) | DRG 307 ==

== ENCOUNTER 2019-05-05 19:16 | Inpatient (IN) | payer MEDICARE, OTHER ==
[~2019-05-05] VITALS: Ht 190.5 cm; Wt 104.4 kg
[~2019-05-05 19:16] MED LIST changes: +AMLO-145 ORAL; +AMLO-145 PO; +AMLO-147 PO; -AMLO-218 PO; +AMLO2.5T78 PO; -ASPI-664 PO; +ASPI-831 PO; +ASPI325T30 PO; -ATOR20TA38 PO; +ATOR40TA68 PO; -BEN50 PO; +CARV3.1260 PO; +FURO40TA4 PO; +GABA300C16 ORAL; +HYDR4TAB ORAL; +ISOS20TA19 PO; +ISOS30TA67 PO; -LAS20 PO; +LEVO50TA7 PO; +METO-319 ORAL; +METO-319 PO; +METO-448 PO; +NITR0.4T32 SL; -RANO10002 PO; +RANO500T2 PO; -TICA90TA PO; +[UNRECOGNIZED DRUG - CODE] PO; +[UNRECOGNIZED DRUG - CODE] SUBDERMAL; +[UNRECOGNIZED DRUG - CODE] TD
[2019-05-05] MEDS ORDERED: morphine 4 MG/ML VIAL IV STA (20:35)
[2019-05-05] MEDS ORDERED: ONDANSETRON 4 MG INJ IV STA (20:35)
[2019-05-05] MEDS ORDERED: FUROSEMIDE 20 MG INJ IV ONE (21:00)
[2019-05-05] MEDS ORDERED: ACETAMINOPHEN 325 MG TAB PO PRN (21:30)
[2019-05-05] MEDS ORDERED: ONDANSETRON 4 MG INJ IV PRN (21:30)
[2019-05-06] MEDS: HYDROmorphONE 0.5 MG/0.5 ML SYG IV PRN ×2 (04:41→20:08)
[2019-05-06] MEDS ORDERED: ACETAMINOPHEN 325 MG TAB PO PRN (09:00)
[2019-05-06] MEDS ORDERED: NITROGLYCERIN 0.6 MG/HR PATCH TRANSDERM SCH (09:00)
[2019-05-06] MEDS ORDERED: FUROSEMIDE 40 MG TAB PO SCH (09:00)
[2019-05-06] MEDS: HYDROmorphONE 1 MG/ML SYG IV PRN ×2 (09:12→13:14)
[2019-05-06] MEDS: ISOSORBIDE DINITRATE 20 MG TAB PO SCH ×3 (13:00→21:00)
[2019-05-06 13:18] VITALS: BP 114/69; PULSE 69; RESP 20
[2019-05-06] MEDS: AMLODIPINE 10 MG TAB PO SCH (14:00)
[2019-05-06] MEDS: RANOLAZINE (SR) 500 MG TAB PO SCH ×2 (14:39→22:15)
[2019-05-06] MEDS: POTASSIUM CHLORIDE (SR) 20 MEQ TAB PO SCH (14:40)
[2019-05-06] MEDS: ASPIRIN (EC) 325 MG TAB PO SCH (14:40)
[2019-05-06] MEDS ORDERED: FUROSEMIDE 20 MG INJ IV ONE (15:00)
[2019-05-06 15:43] VITALS: Ht 190.5 cm; Wt 104.4 kg
[2019-05-06 18:30] VITALS: BP 120/60; PULSE 74
[2019-05-06] MEDS: FUROSEMIDE 40 MG INJ IV SCH (18:33)
[2019-05-06 19:20] VITALS: BP 111/63; PULSE 70; RESP 20
[2019-05-06] MEDS: ATORVASTATIN 40 MG TAB PO SCH (22:14)
[2019-05-06 23:00] VITALS: BP 99/57; PULSE 70; RESP 16
[2019-05-07] MEDS: HYDROmorphONE 1 MG/ML SYG IV PRN ×6 (00:45→21:23)
[2019-05-07 04:00] VITALS: BP 123/59; PULSE 74; RESP 16
[2019-05-07] MEDS: FUROSEMIDE 40 MG INJ IV SCH ×2 (06:44→17:29)
[2019-05-07 07:09] VITALS: BP 99/59; PULSE 73; RESP 20
[2019-05-07] MEDS: ISOSORBIDE DINITRATE 20 MG TAB PO SCH ×3 (08:56→20:51)
[2019-05-07] MEDS: POTASSIUM CHLORIDE (SR) 20 MEQ TAB PO SCH (08:57)
[2019-05-07] MEDS: AMLODIPINE 10 MG TAB PO SCH (08:58)
[2019-05-07] MEDS: ASPIRIN (EC) 325 MG TAB PO SCH (08:58)
[2019-05-07] MEDS: RANOLAZINE (SR) 500 MG TAB PO SCH ×2 (08:59→20:51)
[2019-05-07 11:08] VITALS: BP 93/55; PULSE 70; RESP 20
[2019-05-07 17:29] VITALS: BP 127/60
[2019-05-07 20:39] VITALS: BP 111/63; PULSE 70; RESP 18
[2019-05-07] MEDS: ATORVASTATIN 40 MG TAB PO SCH (20:51)
[2019-05-08] VITALS (7 sets, daily range): BP systolic 91–116; BP diastolic 50–68; PULSE 69–79; RESP 16–20
[2019-05-08] MEDS: HYDROmorphONE 1 MG/ML SYG IV PRN ×6 (02:12→22:12)
[2019-05-08] MEDS: FUROSEMIDE 40 MG INJ IV SCH ×2 (06:46→18:04)
[2019-05-08] MEDS: POTASSIUM CHLORIDE (SR) 20 MEQ TAB PO SCH (09:00)
[2019-05-08] MEDS ORDERED: AMLODIPINE 5 MG TAB PO SCH (09:00)
[2019-05-08] MEDS: ISOSORBIDE DINITRATE 20 MG TAB PO SCH ×3 (09:00→21:00)
[2019-05-08] MEDS: ASPIRIN (EC) 325 MG TAB PO SCH (09:50)
[2019-05-08] MEDS: RANOLAZINE (SR) 500 MG TAB PO SCH ×2 (09:50→21:11)
[2019-05-08] MEDS: ATORVASTATIN 40 MG TAB PO SCH (21:11)
[2019-05-09] VITALS (7 sets, daily range): BP systolic 90–129; BP diastolic 50–66; PULSE 70–94; RESP 18–20
[2019-05-09] MEDS: FUROSEMIDE 40 MG INJ IV SCH ×2 (06:32→17:50)
[2019-05-09] MEDS: HYDROmorphONE 1 MG/ML SYG IV PRN ×4 (06:49→21:25)
[2019-05-09] MEDS: ASPIRIN (EC) 325 MG TAB PO SCH (10:09)
[2019-05-09] MEDS: RANOLAZINE (SR) 500 MG TAB PO SCH ×2 (10:09→21:26)
[2019-05-09] MEDS: POTASSIUM CHLORIDE (SR) 20 MEQ TAB PO SCH (10:09)
[2019-05-09] MEDS: ISOSORBIDE DINITRATE 20 MG TAB PO SCH ×3 (10:10→21:00)
[2019-05-09] MEDS: AMLODIPINE 2.5 MG TAB PO SCH (10:11)
[2019-05-09] MEDS: ATORVASTATIN 40 MG TAB PO SCH (21:25)
[2019-05-10] VITALS (8 sets, daily range): BP systolic 90–122; BP diastolic 54–72; PULSE 68–78; RESP 18–20
[2019-05-10] MEDS: HYDROmorphONE 1 MG/ML SYG IV PRN ×6 (01:34→21:58)
[2019-05-10] MEDS: FUROSEMIDE 40 MG INJ IV SCH ×2 (07:03→17:38)
[2019-05-10] MEDS: ISOSORBIDE DINITRATE 20 MG TAB PO SCH ×3 (08:59→20:45)
[2019-05-10] MEDS: POTASSIUM CHLORIDE (SR) 20 MEQ TAB PO SCH (09:01)
[2019-05-10] MEDS: AMLODIPINE 2.5 MG TAB PO SCH (09:01)
[2019-05-10] MEDS: RANOLAZINE (SR) 500 MG TAB PO SCH ×2 (09:01→20:41)
[2019-05-10] MEDS: ASPIRIN (EC) 325 MG TAB PO SCH (09:01)
[2019-05-10] MEDS: ATORVASTATIN 40 MG TAB PO SCH (20:41)
[2019-05-11] VITALS: BP 103/58; PULSE 71; RESP 18
[2019-05-11] MEDS: HYDROmorphONE 1 MG/ML SYG IV PRN ×4 (02:09→15:13)
[2019-05-11 04:37] VITALS: BP 110/59; PULSE 70; RESP 18
[2019-05-11 06:13] VITALS: BP 112/72; PULSE 74; RESP 17
[2019-05-11] MEDS: FUROSEMIDE 40 MG INJ IV SCH ×2 (06:14→17:04)
[2019-05-11 07:20] VITALS: BP 102/61; PULSE 69; RESP 20
[2019-05-11] MEDS: ASPIRIN (EC) 325 MG TAB PO SCH (08:27)
[2019-05-11] MEDS: ISOSORBIDE DINITRATE 20 MG TAB PO SCH (08:28)
[2019-05-11] MEDS: POTASSIUM CHLORIDE (SR) 20 MEQ TAB PO SCH (08:28)
[2019-05-11] MEDS: RANOLAZINE (SR) 500 MG TAB PO SCH (08:28)
[2019-05-11] MEDS: AMLODIPINE 2.5 MG TAB PO SCH (08:29)
[2019-05-11 11:33] VITALS: BP 98/51; PULSE 70; RESP 20
[2019-05-11] MEDS ORDERED: ISOSORBIDE DINITRATE 20 MG TAB PO SCH (13:00)
[2019-05-11 15:49] VITALS: BP 103/57; PULSE 70; RESP 20
== END 2019-05-11 20:35 | disposition home or self-care (01) | DRG 293 ==
LOC: E/R 19:16 → EDUNIT# 19:16 → INTOOBSV 21:07 → UNDOADMIN 21:07 → TEL 21:07 → OBSVTOIN 05-07 13:29
PROVIDERS: ADMIT Internal Medicine; ATTEND Internal Medicine
DX: I11.0 Hypertensive heart disease with heart failure (principal); R07.9 Chest pain, unspecified; I50.23 Acute on chronic systolic (congestive) heart failure; Z95.1 Presence of aortocoronary bypass graft; Z95.810 Presence of automatic (implantable) cardiac defibrillator; I07.1 Rheumatic tricuspid insufficiency; M54.5 Low back pain; E78.5 Hyperlipidemia, unspecified; I10 Essential (primary) hypertension; Z95.5 Presence of coronary angioplasty implant and graft
CPT/HCPCS: 36415; 71045; 80048; 80053; 80061; 80076; 82550; 82553; 83880; 84443; 84484; 85025; 85610; 93005; 93306; 93970; 96374; 96375; 97161; 99217; G0378; J1170; J1940; J2270; J2405